=== PATIENT | male | born 1950 | race Caucasian/White ===

== ENCOUNTER 2018-03-28 06:43 | Inpatient (IN) | payer MEDICAID, MEDICARE ==
--- NOTE | 2018-03-28 07:19 | ED Physician Documentation ---
PD HPI HEENT - Stated complaint Stated Complaint: SWOLLEN JAW - Chief complaint Chief Complaint: Heent - History obtained from History obtained from: Patient - History of Present Illness Timing - onset: How many days ago (5) Timing - duration: Days (5) Timing - details: Gradual onset, Still present (Progressively worse.) Location: Other (Right face, jaw) Associated symptoms: Facial swelling Similar symptoms before: Has not had sx before - Additional information Additional information: The patient is a 67-year-old male who presents with right facial swelling. 5 days ago he yawned widely, and felt a pop on the right jaw. For the past 2 days he has had progressively increased swelling on the right side of the face. He is unable to open his jaw more than a small amount. He denies fever, toothache, or difficulty swallowing. He denies history of similar symptoms in the past. Review of Systems Constitutional: denies: Fever Eyes: denies: Irritation Ears: denies: Ear pain Nose: denies: Congestion Throat: denies: Sore throat Cardiac: denies: Chest pain / pressure Respiratory: denies: Dyspnea, Cough GI: denies: Abdominal Pain, Nausea, Vomiting Skin: denies: Rash Musculoskeletal: denies: Neck pain, Extremity swelling Neurologic: denies: Focal weakness, Numbness, Headache PD PAST MEDICAL HISTORY - Past Medical History Past Medical History: Yes Cardiovascular: Congestive heart failure, Hypertension, High cholesterol, Coronary artery disease Respiratory: None Neuro: None Endocrine/Autoimmune: None GI: None : None HEENT: None Psych: None Musculoskeletal: Osteoarthritis Derm: None - Past Surgical History Past Surgical History: Yes Cardiovascular: Coronary stent HEENT: Tonsil/Adenoidectomy - Present Medications Home Medications: Ambulatory Orders Medication Instructions Recorded Confirmed Atorvastatin Calcium 80 mg PO QPM 03/28/18 03/28/18 Carvedilol 6.25 mg PO BID 03/28/18 03/28/18 Furosemide 20 mg PO DAILY 03/28/18 03/28/18 Spironolactone 12.5 mg PO DAILY 03/28/18 03/28/18 - Allergies Allergies/Adverse Reactions: Allergies Allergy/AdvReac Type Severity Reaction Status Date / Time No Known Drug Allergies Allergy Verified 03/28/18 06:53 - Social History Does the pt smoke?: No Smoking Status: Never smoker Does the pt drink ETOH?: Yes Does the pt have substance abuse?: No Substance Use and Type: Marijuana - Immunizations Immunizations are current?: No Immunizations: TDAP >10years/unknown - POLST Patient has POLST: No PD ED PE NORMAL - Vitals Vital signs reviewed: Yes (Borderline hypertension.) - General General: Alert and oriented X 3, Well developed/nourished - HEENT HEENT: Atraumatic, EOMI, Ears normal, Pharynx benign, Other (Marked right facial swelling, in the parotid region.) - Neck Neck: Supple, no meningeal sign, No adenopathy - Cardiac Cardiac: RRR - Respiratory Respiratory: No respiratory distress, Clear bilaterally - Derm Derm: No rash - Neuro Neuro: Alert and oriented X 3, No motor deficit, Normal speech Results - Vitals Vitals: Vital Signs - 24 hr 03/28/18 03/28/18 06:45 10:36 Temperature 36.3 C L 36.9 C Heart Rate 97 90 Respiratory 17 16 Rate Blood Pressure 134/83 H 139/85 H O2 Saturation 98 96 Oxygen O2 Source Room air - Labs Labs: Laboratory Tests 03/28/18 08:40 Sodium 135 Potassium 5.2 H Chloride 101 Carbon Dioxide 24 Anion Gap 10.0 BUN 22 H Creatinine 1.1 Estimated GFR (MDRD) 67 L Glucose 149 H Calcium 9.6 PD MEDICAL DECISION MAKING - ED course Complexity details: reviewed results, re-evaluated patient, considered differential, d/w patient, d/w service delivery management consultant ED course: The patient's presentation is significant for a large dental abscess measuring 3.8 x 3.8 cm in size, involving the right masseter and buccinator muscles. On CT scan it appears to be associated with a decayed third molar. Treatment in the emergency department included administration of clindamycin 900 mg IV, and morphine 5 mg IV. I discussed his condition with Dr. Jeffery Scanlon , maxillofacial surgeon, and he accepts the patient for surgical intervention. He asked that the patient be also treated with Decadron 10 mg every 6 hours and Unasyn 3 gm every 6 hours, and he asked that the hospitalist admit the patient. I discussed his condition with Dr. Durbin, who accepts. The first doses of Decadron and Unasyn were administered in the emergency department. - Sepsis Event Vital Signs: Vital Signs - 24 hr 03/28/18 03/28/18 06:45 10:36 Temperature 36.3 C L 36.9 C Heart Rate 97 90 Respiratory 17 16 Rate Blood Pressure 134/83 H 139/85 H O2 Saturation 98 96 Oxygen O2 Source Room air Departure - Departure Disposition: ED Place in Observation Clinical Impression: Dental abscess Condition: Stable Discharge Date/Time: 03/28/18 11:54
[2018-03-28] MEDS ORDERED: IOPAMIDOL-300 100 ML VIAL IVP ONE (07:32)
[2018-03-28] MEDS ORDERED: IOPAMIDOL-300 100 ML VIAL ONE (07:34)
[2018-03-28] MEDS ORDERED: MORPHINE 10 MG/ML VIAL IVP STA (08:56)
[2018-03-28 08:57] LABS: CALCIUM 9.6 mg/dL (8.5-10.3); CREATININE 1.1 mg/dL (0.6-1.2)
[2018-03-28] MEDS ORDERED: CLINDAMYCIN 900 MG/50 ML 50 ML IV ONE (10:06)
--- NOTE | 2018-03-28 10:10 | CT Report ---
EXAM: CT MAXILLOFACIAL WITH CONTRAST EXAM DATE: 03/28/2018 09:21 AM. CLINICAL HISTORY: Right facial swelling; ?abscess. COMPARISONS: None. TECHNIQUE: Thin-section axial images were acquired of the face after administration of intravenous co ntrast. Post-processing: Coronal and sagittal reformats. Other: None. IV contrast: 100 cc Isovue-300. In accordance with CT protocol optimization, one or more of the following dose reduction techniques w ere utilized for this exam: automated exposure control, adjustment of mA and/or KV based on patient s ize, or use of iterative reconstructive technique. FINDINGS: Irregularly shaped, peripherally enhancing low attenuation collection centered in the right masticato r space (in the right masseter and buccinator muscle) measuring up to 3.8 x 1.7 x 3.8 cm most likely represents odontogenic abscess. There is decayed partially erupted right maxillary third molar with s ignificant lucencies around the tooth. Lateral right mandibular cortical breakthrough adjacent to the root of the tooth (axial image 76 series 3). Significant soft tissue swelling and fat stranding in t he bilateral submandibular and submental region. A similar decayed unerupted or partially erupted left mandibular third molar is demonstrated. [place]uita-radicular lucency around the root of decayed left mandibular molar is also demonstrated extendin g laterally with cortical breakthrough of the adjacent mandible (axial image 77 series 4) without jose e dence for abscess. Changes compatible with cartilaginous nasal septal perforation. Paranasal sinuses and mastoid air ashley ls are unremarkable. Nasopharynx, oropharynx, hypopharynx, larynx appear unremarkable. There are find ings of right vocal cord paresis with medialization of the right vocal cord, enlargement of the ipsil ateral right piriform sinus. Visible intracranial contents appear unremarkable. Intracranial vasculature shows mild atheroscleroti c calcification of the cavernous carotid segment otherwise unremarkable. Orbits and extracranial soft tissue appear unremarkable. Parapharyngeal space, retropharyngeal space appear unremarkable. There i s approximately 40% stenosis of bilateral internal carotid arteries with atherosclerotic calcificatio ns. Alignment of the cervical spine is within normal. No suspicious lytic or sclerotic osseous lesions. IMPRESSION: 1. Large irregular, peripherally enhancing abscess in the right finance accounting internship space (right masseter and buccinator muscle), most likely odontogenic abscess originating from a decayed partially erupted righ t mandibular third molar. No evidence for submandibular abscess or floor of mouth abscess. 2. Similar decayed partially erupted left mandibular third molar. 3. Decayed left mandibular first molar with quita-radicular lucency and periodontal disease. 4. Changes compatible with cartilaginous nasal septal perforation. 5. 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 6. Atherosclerotic calcified and noncalcified plaque of bilateral carotid bifurcation with less than 50% stenosis. RADIA The above findings were discussed with Pranay Alvarenga by Dr. Kleber Chen at 10:04 hrs on 03/28/18. Referring Provider Line: [phone] SITE ID: [id number]
[2018-03-28] MEDS ORDERED: DEXAMETHASONE 10 MG/ML VIAL IVP STA (11:02)
[2018-03-28] MEDS ORDERED: AMPICILLIN/SULBACTAM 3 GM in SODIUM CHLORIDE 0.9% MINIBAG 100 ML IV STA (11:03)
--- NOTE | 2018-03-28 11:43 | HISTORY & PHYSICAL EXAMINATION ---
Chief Complaint - Chief Complaint Chief Complaint: right facial abcess. History of Present Illness - Admitted From Admitted From:: ED - History Obtained From Records Reviewed: yes History obtained from: chart review, patient Exam Limitations: none. - History of Present Illness HPI Comment/Other: Wm Milan is a 67-year old white male with a prominent cardiac history including HTN, hyperlipidemia, coronary stents x4, CHF, nocturia, dental caries , arthritis, tobacco dependence, alcohol dependence and occasional marijuana use. He presented to the ED after about a 5 day history of increased right facial pain, swelling that has grown significantly ever since 2 days ago when he noticed "a pop in my jaw". Today this swelling involved his right lips to the point he can no longer open his mouth. He denies recent fevers, chills, nausea, vomiting, headaches or a new cough. Once in the ED the maxillofacial surgeon was called and believes that due to the extent of this absess, further IV treatment post-op will be necessary. He will undergo a right facial I & D later today. History - Past Medical History Cardiovascular: reports: Congestive heart failure, Hypertension, High cholesterol, Coronary artery disease Respiratory: reports: None Neuro: reports: None Endocrine/Autoimmune: reports: None GI: reports: Chronic diarrhea, Chronic constipation : reports: Nocturia HEENT: reports: None Psych: reports: None Musculoskeletal: reports: Osteoarthritis Derm: reports: None MRSA Hx?: No - Past Surgical History Cardiovascular: reports: Coronary stent, Cardiac catheterization HEENT: reports: Tonsil/Adenoidectomy - Family & Social History Family History: Mother: , Diabetes, Type 2, Father: , CAD, Sister: Alive and Well, Diabetes, Type 2 Living arrangement: At home Living Situation: Alone - Substance History Use: Uses substance without health or social issues: Tobacco, Alcohol, Cannabis Abuse: Recurrent use of substance despite neg consequences: Alcohol, Cannabis Dependence: Experiences withdrawal or developed tolerances: Tobacco, Alcohol, Cannabis Tobacco Details: Cigarettes - POLST Patient has POLST: No POLST Status: Full Code Meds/Allgy - Home Medications Home Medications: Ambulatory Orders Medication Instructions Recorded Confirmed Atorvastatin Calcium 80 mg PO QPM 03/28/18 03/28/18 Carvedilol 6.25 mg PO BID 03/28/18 03/28/18 Furosemide 20 mg PO DAILY 03/28/18 03/28/18 Spironolactone 12.5 mg PO DAILY 03/28/18 03/28/18 - Allergies Allergies/Adverse Reactions: Allergies Allergy/AdvReac Type Severity Reaction Status Date / Time No Known Drug Allergies Allergy Verified 03/28/18 06:53 Review of Systems - Constitutional Constitutional: reports: Fatigue, Weight loss (related to lack of food from soreness in mouth.) - Eyes Eyes: reports: Corrective lenses - Ears, Nose & Throat Ears, Nose & Throat: reports: Nasal congestion, Postnasal drainage, Dental decay - Respiratory Respiratory: reports: Cough - Gastrointestinal Gastrointestinal: reports: Constipation, Diarrhea, Change in bowel habits, Reflux/heartburn, Poor appetite - Genitourinary Genitourinary: reports: Nocturia - Neurological Neurological: reports: Focal weakness - All Other Systems All Other Systems: reports: Reviewed and negative Exam - Vital Signs Reviewed Vital Signs: Yes Vital Signs: Temp Pulse Resp BP Pulse Ox 36.6 C 99 18 139/81 H 99 03/28/18 16:31 03/28/18 16:31 03/28/18 16:31 03/28/18 16:31 03/28/18 16:31 - Physical Exam General Appearance: positive: No acute distress, Alert Eyes Bilateral: positive: Normal inspection, PERRL, Other (mild right eye inflammation, patient denies changes in vision. No drainaged noted.) ENT: positive: ENT inspection nml, Pharyngeal erythema, Oral lesions, Dry mucous membranes, Other (patient unable to open his mouth for a complete exam, will defer this to ENT.) Neck: positive: No JVD, Trachea midline, Lymphadenopathy (R), Stiff neck Respiratory: positive: Chest non-tender, No respiratory distress, Breath sounds nml Cardiovascular: positive: Regular rate & rhythm, Irregularly irregular, Tachycardia, Systolic murmur Peripheral Pulses: positive: 2+ Abdomen: positive: Non-tender, Nml bowel sounds, Other (rounded, soft) Back: positive: Nml inspection Skin: positive: No rash, Warm, Dry, Pallor Extremities: positive: Non-tender, Full ROM, Nml appearance, No pedal edema Neurologic/Psychiatric: positive: Oriented x3, CN's nml (2-12), Motor nml, Sensation nml, Depressed mood/affect Reflexes: Bicep (R): 3+, Bicep (L): 3+ Conclusion/Plan - Problem List (1) CAD (coronary artery disease) Conclusion/Plan: The patient admits to "4 coronary stents" in the past and believes that this was late 2015. He states that he has had "a mini heart attack with chest pain, which led to these stents". He was discontinued off both Plavix and Warfarin. He continues on Coreg, spironolactone and furosemide appropriately at home. He now has an elevated BNP that was check pre-op, so I will order an echocardiogram to be completed in the AM in order to make favorable adjustments to his medications, especially since he does not have a current PCP. Plan: Continue Coreg, telemetry monitoring, and add lasix first IV, then transition to PO by the time of discharge. (2) Dental abscess Conclusion/Plan: As per imaging that was completed in the ED, this right facial abscess was caused by a tooth in the upper right jaw. Plans for patient to undergo a possible tooth extraction, I & D with Dr. Jeffery Scanlon, maxillofacial surgeon today. There is a horrible stench noticed in the room and this is likely the infection from his right facial abscess. Upon exam the abscess is tender, very firm, and encompasses much of his entire check, into his right eye socket, and right side of his mouth/lips. Plan: Continue plan of care. (3) Pre-op evaluation Conclusion/Plan: Based on the revised cardiac risk index for pre-operative risk, this patient is at a 6.6% risk of a major cardiac event. His physical exam is benign. Plan: Proceed with surgery today for this acute infection and await labs. - Lab Results Lab results reviewed: Yes Miguel Bones: 03/28/18 13:20 03/28/18 13:20 Core Measures - Anticipated LOS I expect patient to be DC'd or transferred within 96 hours.: Yes - DVT/VTE - Prophylaxis VTE/DVT Device ordered at admit?: Yes VTE/DVT Prophylaxis med ordered at admit?: No Not Ordered - Medical Reason: Contraindicated - Stroke - Rehab Assessment Rehab services assessment to be ordered?: No Not Ordered - Medical Reason: Contraindicated - AMI - Statin at Admit Aspirin Prescribed on Admit: No Not Ordered - Medical Reason: Contraindicated
[2018-03-28] MEDS: SODIUM CHLORIDE FLUSH 0.9% 10 ML SYRINGE IVP PRN (12:24)
[2018-03-28] MEDS ORDERED: MORPHINE 2 MG/ML SYRINGE IVP PRN (12:28)
[2018-03-28] MEDS ORDERED: NS W/20 MEQ KCL 1,000 ML IV SCH (13:00)
[2018-03-28] MEDS ORDERED: SODIUM CHLORIDE 0.9% 1,000 ML IV ONE (13:05)
[2018-03-28] MEDS ORDERED: LIDOCAINE TOPICAL 4% 50 ML BOTTLE ONE (13:09)
[2018-03-28] MEDS ORDERED: OXYMETAZOLINE NASAL SPRAY NAS ONE (13:09)
[2018-03-28 13:32] LABS: BASOPHILS % (AUTO) 0.3 %; EOSINOPHILS % (AUTO) 0.1 %; HGB - HEMOGLOBIN 13.4 g/dL (14.0-18.0); INR 1.4 (0.8-1.2); LYMPHOCYTES # (AUTO) 0.3 10^3/uL (1.5-3.5); LYMPHOCYTES % (AUTO) 2.4 %; MEAN CORPUSCULAR HEMOGLOBIN 31.4 pg (27.0-31.0); MEAN CORPUSCULAR VOLUME 95.1 fL (80.0-94.0); MEAN PLATELET VOLUME 7.8 fL (7.4-11.4); MONOCYTES # (AUTO) 0.8 10^3/uL (0.0-1.0); MONOCYTES % (AUTO) 5.7 %; NEUTROPHILS # (AUTO) 12.4 10^3/uL (1.5-6.6); NEUTROPHILS % (AUTO) 91.5 %; PLT - PLATELET COUNT 220 10^3/uL (130-450); PT - PROTHROMBIN TIME 15.6 secs (9.9-12.6); RED BLOOD COUNT 4.27 10^6/uL (4.70-6.10); RED CELL DISTRIBUTION WIDTH 14.9 % (12.0-15.0); WHITE BLOOD COUNT 13.5 x10^3/uL (4.8-10.8)
[2018-03-28] MEDS ORDERED: LACTATED RINGERS 1,000 ML IV ONE (13:48)
--- NOTE | 2018-03-28 13:57 | PROVIDER PROGRESS NOTE ---
Subjective - Prog Note Date Prog Note Date: 03/28/18 Prog Note Time: 13:50 - Subjective Subjective: Brief Consult note (dictated note, zigzag elastic attacher pending) Objective - Vital Signs/Intake & Output Vital Signs: Vital Signs x48h Temp Pulse Resp BP Pulse Ox 03/28/18 11:52 36.5 C 103 H 18 137/89 H 99 Intake & Output: Intake & Output 03/25/18 03/26/18 03/27/18 03/28/18 23:59 23:59 23:59 23:59 Intake Total 50 Balance 50 - Lab Results Fish Bones: 03/28/18 13:20 03/28/18 08:40 Other Labs: Lab Results x24hrs 03/28/18 03/28/18 Range/Units 13:20 13:20 WBC 13.5 H (4.8-10.8) x10^3/uL RBC 4.27 L (4.70-6.10) 10^6/uL Hgb 13.4 L (14.0-18.0) g/dL Hct 40.6 L (42.0-52.0) % MCV 95.1 H (80.0-94.0) fL MCH 31.4 H (27.0-31.0) pg MCHC 33.0 (32.0-36.0) g/dL RDW 14.9 (12.0-15.0) % Plt Count 220 (130-450) 10^3/uL MPV 7.8 (7.4-11.4) fL Neut # (Auto) 12.4 H (1.5-6.6) 10^3/uL Lymph # (Auto) 0.3 L (1.5-3.5) 10^3/uL [place] # (Auto) 0.8 (0.0-1.0) 10^3/uL Eos # (Auto) 0.0 (0.0-0.7) 10^3/uL Baso # (Auto) 0.0 (0.0-0.1) 10^3/uL Absolute Nucleated RBC 0.01 x10^3/uL Nucleated RBC % 0.0 /100WBC PT 15.6 H (9.9-12.6) secs INR 1.4 H (0.8-1.2) APTT 28.4 (24.9-33.3) secs - Other Results/Comments Other Results/Comments: Cellulitis from the R zygomatic arch to the left inferior border of the mandible , extending inferiorly to the thyroid cartilage. Severe trismus, around 1cm, mechanically limited, not limited by pain. Uvula midline, no lateral pharyngeal swelling. CT: large abscess on the lateral aspect of the mandible. Airway midline, mild effacement and mass effect. No cellulitis medial to the mandible. CT consistent with odontogenic abscess - cortical perforation at apex of decayed , necrotic, impacted tooth #32. 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 Plan: I&D of the R neck and face w/ removal of tooth #32 - unasyn 3g q6h - decadron 10mg q6h <> hold if suspect DM II - Puree diet when awake - potassium per primary, appreciate assistance - gentle IV hydration - drains: keep clean, change dressing BID and prn. Clean skin with moist gauze. - shower daily - chlorhexidine mouthrinse BID - elevate HOB - ambulate TID - SCDs - weight daily - jaw stretching exercises once awake - will see tomorrow am. anticipate two midnight stay, will monitor for improvement of swelling and improvement (not resolution) of trismus. - home on augmentin x 10 days
[2018-03-28 14:22] LABS: CALCIUM 8.7 mg/dL (8.5-10.3); CRP - C-REACTIVE PROTEIN 34.2 mg/dL (0-1.0)
[2018-03-28] MEDS ORDERED: LIDOCAINE 2%-EPI 1:100000 20 ML MDV SUBQ ONE ×2 (14:23)
[2018-03-28] MEDS ORDERED: LIDOCAINE MPF 2%-EPI 1:200000 20 ML VIAL ONE (14:29)
--- NOTE | 2018-03-28 14:50 | XRAY Report ---
CHEST ONE VIEW: 03/28/2018 HISTORY: Preoperative, cough. COMPARISON: 08/11/[address] FINDINGS: The lungs are clear. No pleural effusion or pneumothorax. Heart size appears enlarged, some of which is related to the AP portable technique. IMPRESSION: CLEAR LUNGS. TD: 03/28/2018 13:16
[2018-03-28] MEDS ORDERED: NEOSTIGMINE 1 MG/1 ML 10 ML MDV IVP ONE (15:14)
[2018-03-28] MEDS ORDERED: ROCURONIUM 50 MG/5 ML VIAL IVP ONE (15:14)
[2018-03-28] MEDS ORDERED: ONDANSETRON 4 MG/2 ML VIAL IVP ONE (15:14)
[2018-03-28] MEDS ORDERED: ePHEDrine 50 MG/ML AMP IVP ONE (15:14)
[2018-03-28] MEDS ORDERED: LIDOCAINE TOPICAL 4% 160 MG/4 ML KIT TOP ONE (15:14)
[2018-03-28] MEDS ORDERED: GLYCOPYRROLATE 1 MG/5 ML VIAL IVP ONE (15:14)
[2018-03-28] MEDS ORDERED: MIDAZOLAM 2 MG/2 ML VIAL IVP ONE (15:14)
[2018-03-28] MEDS ORDERED: fentaNYL 100 MCG/2 ML VIAL IVP ONE (15:14)
[2018-03-28] MEDS ORDERED: PROPOFOL 200 MG/20 ML VIAL IVP ONE (15:14)
[2018-03-28] MEDS ORDERED: ONDANSETRON 4 MG/2 ML VIAL ONE (15:38)
[2018-03-28] MEDS: DEXTROSE 5%-0.45% NACL 1,000 ML IV SCH ×2 (15:51→16:23)
[2018-03-28] MEDS ORDERED: SODIUM CHLORIDE 0.9% 500 ML IV ONE (15:56)
[2018-03-28] MEDS: SODIUM CHLORIDE FLUSH 0.9% 10 ML SYRINGE IVP SCH (16:23)
--- NOTE | 2018-03-28 17:01 | CONSULTATION NOTE ---
DATE OF SERVICE: Physician: Jeffery Scanlon DDS REFERRING PROVIDER: Dr. Pranay Alvarenga. LOCATION OF CONSULTATION: Medical/surgical floor. CHIEF COMPLAINT: Right facial swelling and pain. HISTORY OF PRESENT ILLNESS: This is a 67-year-old male who came to the emergency room this morning at 7 a.m. with right facial swelling. He reports that on Saturday of this week, he began to have pain on his right face after he yawned. He did not think much of it and then on Saturday, he began having right facial swelling that gradually worsened until this morning when it was severely worse. Before then, he had sought care briefly, but when he had to wait, he was not successful in seeing any providers for this problem. Today in the emergency room, he was found to have severe right facial swelling and a CT max face with contrast was taken. It demonstrated a 4 cm abscess on the lateral aspect of the right mandibular body and ramus deep to the masseter muscle associated with a necrotic impacted third molar. OMFS was consulted for evaluation and management of this finding. The patient denies any fevers, chills or vomiting. He does endorse some mild nausea this morning. He denies any chest pain, shortness of breath, dyspnea, dysphagia, globus. He does endorse a cough, which cough has been chronic. ROS: a 14 point review of systems was completed and found to be negative except as noted above in HPI. Medical problems: CHF CAD HTN HLD Tobacco use MEDICATIONS: 1. Carvedilol. 2. Atorvastatin. 3. Spironolactone. 4. Furosemide. PAST SURGICAL HISTORY: Cardiac stent placement x4 with the last one in 2014. SOCIAL HISTORY: Smokes 1 pack cigarette per week and per the emergency room report, he does have recreational marijuana use. ALLERGIES: NO KNOWN DRUG ALLERGIES. FAMILY HISTORY: Mother diabetes mellitus, sister diabetes mellitus. PHYSICAL EXAMINATION: VITAL SIGNS: Heart rate 105, blood pressure 124/64, respiratory rate 9. GENERAL: Alert and oriented, in no acute distress. HEENT: Head is normocephalic, atraumatic. Eyes: PERRLA, EOMI. Wears glasses. Ears: Normal hearing. No drainage. Bilateral tympanic membranes within normal limits. No hearing changes. No mastoid swelling. Nose: Patent bilaterally. Mouth maximum incisal opening about 1 cm. Examination of the posterior teeth is impossible because of his poor opening and his facial swelling. He does have severe right facial swelling that is indurated and woody. It extends from about the right zygoma down over the right mandible and to the right inferior border of the mandible. At the inferior border of the mandible swelling and tenderness continues, but it is no longer woody hard. Instead it is more consistent with a softer cellulitis. It does cross the midline and spreads over the left submandibular area as well. Inferiorly, it spreads as far as the thyroid cartilage and does not spread any further. There is only mild erythema associated with the swelling in his neck and there is no pain or swelling on his chest. NECK: As described above there is a swelling, otherwise his airway is midline and there are no palpable masses. CHEST: Symmetric rise. Nonlabored respirations. Clear to auscultation bilaterally. HEART: Regular rate and rhythm. No murmur. ABDOMEN: Soft, nontender, nondistended. Normoactive bowel sounds. EXTREMITIES: Good strength. Full range of motion. INTEGUMENTARY: Clean, dry and intact. NEUROLOGIC: Cranial nerves 2-12 intact. PSYCHIATRIC: Appropriate mood and affect. IMAGING: There is a CT max face that I was able to review. It does demonstrate a large 4 cm abscess associated with the right body and ramus of the mandible. The abscess is all located laterally to the mandible and it is all deep to the masseter. Also noted is an impacted wisdom tooth, tooth #32, which has just enough oral communication to become very decayed and necrotic with a perforation through the lateral plate of the mandible where the apex of the tooth lies consistent with odontogenic source of this infection. There is also evidence of a cellulitis of the bilateral submandibular spaces, fat stranding and the fat stranding does not extend down to the clavicles. LABORATORY DATA: The CBC demonstrates a white count of 13.5, a platelet count of 220 and a hematocrit of 13.4. A DMP demonstrates a potassium of 5.2 and a blood glucose of 149. It should be noted that this was measured this morning at 8:40 and his dose of Decadron was not until around noon. ASSESSMENT AND PLAN: 1. 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 2. History of heart failure. 3. Dehydration. 4. Tobacco use. 5. Hyperkalemia. Potassium 5.2, probably secondary to spironolactone use. 6. Hyperglycemia without a history of diabetes, but he does have a significant family history. PLAN: We anticipate incision and drainage of the right submandibular masseteric and sublingual spaces with removal of tooth #32 and any other teeth as necessary. The risks, benefits and alternatives of this plan were discussed with the patient including pain, swelling, bleeding, infection, recurrence of the infection, need for further surgeries, permanent numbness of the lip, chin or tongue, permanent damage to adjacent teeth, permanent paralysis scarring, poor cosmesis and jaw fracture. Adequate time was given to answer all questions and informed consent was obtained. This patient will need to be admitted to the hospital for IV antibiotics and for airway monitoring while his trismus is 1 cm. Once his opening is improved and he is showing evidence of resolution of the disease, he can be discharged home. Anticipate 2 nights stay in-house. cc: Pranay Alvarenga M.D. TD: 03/28/2018 14:03 [id number]
[2018-03-28] MEDS ORDERED: cefTRIAXone 1 GM VIAL IVP SCH (17:20)
--- NOTE | 2018-03-28 17:21 | OPERATIVE REPORT ---
DATE OF SERVICE: 03/28/2018 Physician: Jeffery Scanlon DDS POSTOPERATIVE DIAGNOSIS: 1. Right masseteric space abscess and bilateral submandibular space cellulitis secondary to necrotic tooth #32. 2. Decayed impacted tooth #32. PROCEDURE: 1. 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 2. Removal of full bony impacted tooth #32. SURGEON: Jeffery Scanlon DDS MAGNETIC HEALER: Maria Alejandra Ma. ANESTHESIA: General anesthesia via oral endotracheal intubation. SPECIMENS: A sample of the purulence was sent to micro for Gram stain, anaerobic and aerobic culture and sensitivity. COMPLICATIONS: None. ESTIMATED BLOOD LOSS: 10 mL. DRAINS, PACKS, CATHETERS: A 1/4 inch Welches was placed in the through the right neck up into the right masseteric space lateral to the mandible. INDICATIONS FOR PROCEDURE: This is a 67-year-old male with a week long history of swelling of the right face. 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 It was decided that removal of this tooth and incision and drainage of the abscess was indicated. The risks, benefits and alternatives of the spine were discussed with the patient and informed consent was obtained. DESCRIPTION OF PROCEDURE: The patient was brought to the main operating room and placed in the supine position on the operating table. General anesthesia was induced by the anesthesia team and the airway was secured with an oral endotracheal tube taped to the left side of the mouth. It should be noted that once the patient was sedated his severe trismus did not improve significantly. He still had severe trismus and it was difficult to intubate him. It was performed with a GlideScope. All pressure points were padded and checked. The eyes were protected with Tegaderms. The patient was prepped and draped in the standard sterile fashion for an incision and drainage of the neck and removal of the tooth. A formal timeout was executed, local anesthesia was achieved with 2 percent lidocaine with 1:100,000 epinephrine x4 mL. A throat pack was placed. Attention was directed to the right neck. A 2 cm incision was performed at the inferior aspect of the swelling about approximately 2 cm inferior to the inferior border of the mandible and following the skin tension lines. Blunt dissection toward the mandible was then carried out easily encountering the mandible and entering the abscess cavity, a significant amount of extremely pungent purulence was encountered and milked out. The Blunt curved Kristina was used to explore all aspects of the cavity and large chunks of purulence and other material were being expressed from the site. It was decided to widen the incision just slightly enough to get a finger up into the abscess cavity and continue the blunt dissection. Probably the majority of the lateral ramus and body of the mandible on the right side were exposed as part of this dissection and really no dissection had to be performed. It appeared to have already been performed by the abscess, but now that it was opened significant amount more of debris and purulence was expressed from the wound. It was irrigated with copious amounts of sterile saline, about 800 mL and then attention was directed intraorally. A hockey stick incision over the right mandibular 3rd molar area was made with a 45-degree distal buccal release and a buccal full-thickness flap was elevated. The decayed tooth was found inside of a small perforation in the bone. A handpiece was used to remove bone around the tooth making a buccal and distal trough taking care not to perforate the lingual plate. The tooth was sectioned and the tooth was removed in entirety. The site was curetted and irrigated copiously and then closed loosely with 3-0 gut suture to prevent an oral cutaneous communication, which would allow for food impaction into the abscess cavity. The mouth was rinsed free of debris. The throat pack was removed. The patient's face was cleansed. The eyes were rinsed with BSS. He was dressed with gauze and burn netting around the right neck and care of the patient was returned to the anesthesia team for uneventful emergence from anesthesia and extubation. The patient was then transferred to the PACU in stable condition. TD: 03/28/2018 15:57
[2018-03-28] MEDS: cefTRIAXone 1 GM in SODIUM CHLORIDE 0.9% MINIBAG 100 ML IV SCH (18:01)
[2018-03-28] MEDS: CARVEDILOL 3.125 MG TABLET PO SCH (18:06)
[2018-03-28 18:45] LABS: HEMOGLOBIN A1C 0.7 g/dL; HEMOGLOBIN A1C % 5.9 % (4.6-6.2)
[2018-03-28] MEDS: SACCHAROMYCES BOULARDII 250 MG CAPSULE PO SCH (18:52)
[2018-03-28] MEDS: CHLORHEXIDINE GLUCONATE 15 ML UDC PO SCH ×2 (18:52→21:37)
[2018-03-28] MEDS: metroNIDAZOLE 500 MG/100 ML 500 MG/100 ML BAG IV SCH (18:52)
[2018-03-28] MEDS ORDERED: CARVEDILOL 3.125 MG TABLET PO SCH (21:00)
[2018-03-29] MEDS: SODIUM CHLORIDE FLUSH 0.9% 10 ML SYRINGE IVP SCH ×3 (02:40→18:24)
[2018-03-29] MEDS: metroNIDAZOLE 500 MG/100 ML 500 MG/100 ML BAG IV SCH ×3 (02:41→19:20)
[2018-03-29 06:16] LABS: BASOPHILS % (AUTO) 0.1 %; LYMPHOCYTES # (AUTO) 0.6 10^3/uL (1.5-3.5); LYMPHOCYTES % (AUTO) 5.3 %; MEAN CORPUSCULAR HEMOGLOBIN 31.5 pg (27.0-31.0); MEAN CORPUSCULAR HGB CONC 33.2 g/dL (32.0-36.0); MEAN CORPUSCULAR VOLUME 94.8 fL (80.0-94.0); MEAN PLATELET VOLUME 7.4 fL (7.4-11.4); MONOCYTES % (AUTO) 9.5 %; NEUTROPHILS # (AUTO) 9.1 10^3/uL (1.5-6.6); NEUTROPHILS % (AUTO) 85.1 %; PLT - PLATELET COUNT 192 10^3/uL (130-450); RED BLOOD COUNT 3.82 10^6/uL (4.70-6.10); RED CELL DISTRIBUTION WIDTH 15.2 % (12.0-15.0); WHITE BLOOD COUNT 10.6 x10^3/uL (4.8-10.8)
[2018-03-29 06:35] LABS: ALBUMIN 2.5 g/dL (3.2-5.5); ALBUMIN/GLOBULIN RATIO 0.6 (1.0-2.2); BILIRUBIN,TOTAL 0.7 mg/dL (0.2-1.0); CALCIUM 8.5 mg/dL (8.5-10.3); TOTAL PROTEIN 6.4 g/dL (6.7-8.2)
[2018-03-29] MEDS: DEXTROSE 5%-0.45% NACL 1,000 ML IV SCH (06:47)
[2018-03-29] MEDS: ACETAMINOPHEN 325 MG TABLET PO PRN ×2 (06:51→16:58)
--- NOTE | 2018-03-29 06:54 | PROVIDER PROGRESS NOTE ---
Subjective - Prog Note Date Prog Note Date: 03/29/18 Prog Note Time: 06:51 - Subjective Pt reports feeling: Improved (No events overnight Denies f/c, n/v) Objective - Vital Signs/Intake & Output Vital Signs: Vital Signs x48h Temp Pulse Resp BP Pulse Ox 03/29/18 05:55 36.6 C 92 16 113/70 97 03/29/18 00:05 36.8 C 103 H 16 119/73 96 Intake & Output: Intake & Output 03/26/18 03/27/18 03/28/18 03/29/18 23:59 23:59 23:59 23:59 Intake Total 2300 150 Balance 2300 150 - Objective General Appearance: positive: No acute distress, Alert Eyes Bilateral: positive: PERRL, EOMI ENT: positive: Other (IBRAHIMA improved to 25-30 mm when straining to open. No V3 parasthesia. Swelling softer, slightly less. Drain intact, moderate serosanguinous drainage. Intraoral wound intact, sutures intact. NO lateral pharyngeal swelling, uvula midline.) Respiratory: positive: No respiratory distress, Other (active cough) Cardiovascular: positive: Regular rate & rhythm - Lab Results Fish Bones: 03/29/18 06:04 03/29/18 06:04 Other Labs: Lab Results x24hrs 03/29/18 03/29/18 03/29/18 Range/Units 06:04 06:04 06:04 WBC 10.6 (4.8-10.8) x10^3/uL RBC 3.82 L (4.70-6.10) 10^6/uL Hgb 12.0 L (14.0-18.0) g/dL Hct 36.2 L (42.0-52.0) % MCV 94.8 H (80.0-94.0) fL MCH 31.5 H (27.0-31.0) pg MCHC 33.2 (32.0-36.0) g/dL RDW 15.2 H (12.0-15.0) % Plt Count 192 (130-450) 10^3/uL MPV 7.4 (7.4-11.4) fL Neut # (Auto) 9.1 H (1.5-6.6) 10^3/uL Lymph # (Auto) 0.6 L (1.5-3.5) 10^3/uL Grimes # (Auto) 1.0 (0.0-1.0) 10^3/uL Eos # (Auto) 0.0 (0.0-0.7) 10^3/uL Baso # (Auto) 0.0 (0.0-0.1) 10^3/uL Absolute Nucleated RBC 0.00 x10^3/uL Nucleated RBC % 0.0 /100WBC ESR (0-20) mm/Hr PT (9.9-12.6) secs INR (0.8-1.2) APTT (24.9-33.3) secs Sodium 132 L (135-145) mmol/L Potassium 4.8 (3.5-5.0) mmol/L Chloride 102 (101-111) mmol/L Carbon Dioxide 22 (21-32) mmol/L Anion Gap 8.0 (6-13) BUN 17 (6-20) mg/dL Creatinine 1.0 (0.6-1.2) mg/dL Estimated GFR (MDRD) 75 L (>89) Glucose 207 H (70-100) mg/dL POC Whole Bld Glucose (70 - 100) mg/dL Calcium 8.5 (8.5-10.3) mg/dL Iron 9 L (45-182) ug/dL TIBC 225 L (250-450) ug/dL % Saturation 4 L (20-50) % Transferrin 161 L (180-329) mg/dL Total Bilirubin 0.7 (0.2-1.0) mg/dL GGT 21 (8-55) IU/L AST 22 (10-42) IU/L ALT 19 (10-60) IU/L Alkaline Phosphatase 61 (42-121) IU/L C-Reactive Protein (0-1.0) mg/dL B-Natriuretic Peptide 1335 H (5-100) pg/mL Total Protein 6.4 L (6.7-8.2) g/dL Albumin 2.5 L (3.2-5.5) g/dL Globulin 3.9 (2.1-4.2) g/dL Albumin/Globulin Ratio 0.6 L (1.0-2.2) 03/28/18 03/28/18 03/28/18 Range/Units 17:58 13:21 13:20 WBC (4.8-10.8) x10^3/uL RBC (4.70-6.10) 10^6/uL Hgb (14.0-18.0) g/dL Hct (42.0-52.0) % MCV (80.0-94.0) fL MCH (27.0-31.0) pg MCHC (32.0-36.0) g/dL RDW (12.0-15.0) % Plt Count (130-450) 10^3/uL MPV (7.4-11.4) fL Neut # (Auto) (1.5-6.6) 10^3/uL Lymph # (Auto) (1.5-3.5) 10^3/uL Grimes # (Auto) (0.0-1.0) 10^3/uL Eos # (Auto) (0.0-0.7) 10^3/uL Baso # (Auto) (0.0-0.1) 10^3/uL Absolute Nucleated RBC x10^3/uL Nucleated RBC % /100WBC ESR 57 H (0-20) mm/Hr PT (9.9-12.6) secs INR (0.8-1.2) APTT (24.9-33.3) secs Sodium (135-145) mmol/L Potassium (3.5-5.0) mmol/L Chloride (101-111) mmol/L Carbon Dioxide (21-32) mmol/L Anion Gap (6-13) BUN (6-20) mg/dL Creatinine (0.6-1.2) mg/dL Estimated GFR (MDRD) (>89) Glucose (70-100) mg/dL POC Whole Bld Glucose 163 H (70 - 100) mg/dL Calcium (8.5-10.3) mg/dL Iron (45-182) ug/dL TIBC (250-450) ug/dL % Saturation (20-50) % Transferrin (180-329) mg/dL Total Bilirubin (0.2-1.0) mg/dL GGT (8-55) IU/L AST (10-42) IU/L ALT (10-60) IU/L Alkaline Phosphatase (42-121) IU/L C-Reactive Protein (0-1.0) mg/dL B-Natriuretic Peptide 992 H (5-100) pg/mL Total Protein (6.7-8.2) g/dL Albumin (3.2-5.5) g/dL Globulin (2.1-4.2) g/dL Albumin/Globulin Ratio (1.0-2.2) 03/28/18 03/28/18 03/28/18 Range/Units 13:20 13:20 13:20 WBC 13.5 H (4.8-10.8) x10^3/uL RBC 4.27 L (4.70-6.10) 10^6/uL Hgb 13.4 L (14.0-18.0) g/dL Hct 40.6 L (42.0-52.0) % MCV 95.1 H (80.0-94.0) fL MCH 31.4 H (27.0-31.0) pg MCHC 33.0 (32.0-36.0) g/dL RDW 14.9 (12.0-15.0) % Plt Count 220 (130-450) 10^3/uL MPV 7.8 (7.4-11.4) fL Neut # (Auto) 12.4 H (1.5-6.6) 10^3/uL Lymph # (Auto) 0.3 L (1.5-3.5) 10^3/uL Grimes # (Auto) 0.8 (0.0-1.0) 10^3/uL Eos # (Auto) 0.0 (0.0-0.7) 10^3/uL Baso # (Auto) 0.0 (0.0-0.1) 10^3/uL Absolute Nucleated RBC 0.01 x10^3/uL Nucleated RBC % 0.0 /100WBC ESR (0-20) mm/Hr PT 15.6 H (9.9-12.6) secs INR 1.4 H (0.8-1.2) APTT 28.4 (24.9-33.3) secs Sodium 134 L (135-145) mmol/L Potassium 4.7 (3.5-5.0) mmol/L Chloride 104 (101-111) mmol/L Carbon Dioxide 20 L (21-32) mmol/L Anion Gap 10.0 (6-13) BUN 20 (6-20) mg/dL Creatinine 1.0 (0.6-1.2) mg/dL Estimated GFR (MDRD) 75 L (>89) Glucose 126 H (70-100) mg/dL POC Whole Bld Glucose (70 - 100) mg/dL Calcium 8.7 (8.5-10.3) mg/dL Iron (45-182) ug/dL TIBC (250-450) ug/dL % Saturation (20-50) % Transferrin (180-329) mg/dL Total Bilirubin (0.2-1.0) mg/dL GGT (8-55) IU/L AST (10-42) IU/L ALT (10-60) IU/L Alkaline Phosphatase (42-121) IU/L C-Reactive Protein 34.2 H (0-1.0) mg/dL B-Natriuretic Peptide (5-100) pg/mL Total Protein (6.7-8.2) g/dL Albumin (3.2-5.5) g/dL Globulin (2.1-4.2) g/dL Albumin/Globulin Ratio (1.0-2.2) Assessment/Plan - Problem List (1) Dental abscess Impression: A: 67 yo M POD #1 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 - anticipate d/c tomorrow am pending continued clinical improvement of abscess and clearance for d/c by IM - encouraged good PO intake - gave jaw stretching exercise instructions - continue IV abx. Noted change from Unasyn to Ancef/Flagyl. - appreciate IM assistance, please call w/ questions: [phone] Jeffery Scanlon DDS
[2018-03-29] MEDS ORDERED: FUROSEMIDE 40 MG/4 ML VIAL IVP SCH (08:00)
[2018-03-29] MEDS: SACCHAROMYCES BOULARDII 250 MG CAPSULE PO SCH ×2 (08:17→16:58)
[2018-03-29] MEDS: FUROSEMIDE 40 MG/4 ML VIAL IVP SCH ×2 (08:17→08:32)
[2018-03-29] MEDS: CARVEDILOL 3.125 MG TABLET PO SCH (08:17)
[2018-03-29] MEDS: POLYETHYLENE GLYCOL 3350 17 GM PACKET PO SCH (08:17)
[2018-03-29] MEDS: SPIRONOLACTONE 25 MG TABLET PO SCH (08:17)
[2018-03-29] MEDS: CHLORHEXIDINE GLUCONATE 15 ML UDC PO SCH ×2 (08:18→20:05)
[2018-03-29] MEDS ORDERED: CARVEDILOL 12.5 MG TABLET PO SCH (12:00)
[2018-03-29] MEDS ORDERED: ISOSORBIDE MONONITRATE ER 30 MG TABLET PO SCH (12:00)
--- NOTE | 2018-03-29 14:19 | PROVIDER PROGRESS NOTE ---
Subjective - Prog Note Date Prog Note Date: 03/29/18 Prog Note Time: 14:18 - Subjective Pt reports feeling: Improved Subjective: Quan complains about his "mashed up food" and very much dislikes this texture. He denies SOB, chest pain, nausea, vomiting or a new cough. He admits to being compliant with his jaw exercises as per surgery. Current Medications - Current Medications Current Medications: Active Medications Acetaminophen (Tylenol) 650 mg PO Q4HR PRN PRN Reason: Pain or Fever > 38C (100.4F) Last Admin: 03/29/18 06:51 Dose: 650 mg Atorvastatin Calcium (Lipitor) 80 mg PO QPM [facility] Carvedilol (Coreg) 12.5 mg PO BID [facility] Chlorhexidine Gluconate (Peridex) 15 ml PO BID [facility] Last Admin: 03/29/18 08:18 Dose: 15 ml Furosemide (Lasix Inj 40 Mg Vial) 40 mg IVP DAILY [facility] Last Admin: 03/29/18 08:32 Dose: Not Given Furosemide (Lasix) 20 mg PO DAILY [facility] Metronidazole (Flagyl 500 Mg/100 Ml) 500 mg in 100 mls @ 100 mls/hr IV Q8H [facility] Last Infusion: 03/29/18 13:11 Dose: Infused Ceftriaxone Sodium 1 gm/ (Sodium Chloride) 100 mls @ 200 mls/hr IV Q24H [facility] Last Infusion: 03/28/18 18:30 Dose: Infused Isosorbide Mononitrate (Imdur) 30 mg PO DAILY [facility] Last Admin: 03/29/18 12:50 Dose: 30 mg Morphine Sulfate (Morphine) 2 mg IVP Q2H PRN PRN Reason: PAIN Last Admin: 03/28/18 13:07 Dose: 2 mg Polyethylene Glycol (Miralax) 17 gm PO DAILY [facility] Last Admin: 03/29/18 08:17 Dose: 17 gm Saccharomyces Boulardii (Florastor) 500 mg PO BIDWM [facility] Last Admin: 03/29/18 08:17 Dose: 500 mg Sodium Chloride (Normal Saline Flush 0.9%) 10 ml IVP PRN PRN PRN Reason: NEEDED PER PROVIDER ORDERS Last Admin: 03/28/18 12:24 Dose: 10 ml Sodium Chloride (Normal Saline Flush 0.9%) 10 ml IVP 0100,0900,1700 [facility] Last Admin: 03/29/18 08:18 Dose: 10 ml Spironolactone (Aldactone) 12.5 mg PO DAILY [facility] Last Admin: 03/29/18 08:17 Dose: 12.5 mg Atorvastatin Calcium 80 mg PO QPM 03/28/18 Carvedilol 6.25 mg PO BID 03/28/18 Furosemide 20 mg PO DAILY 03/28/18 Spironolactone 12.5 mg PO DAILY 03/28/18 Objective - Vital Signs/Intake & Output Reviewed Vital Signs: Yes Vital Signs: Vital Signs x48h Temp Pulse Resp BP Pulse Ox 03/29/18 12:12 36.3 C L 91 18 114/62 96 Intake & Output: Intake & Output 03/26/18 03/27/18 03/28/18 03/29/18 23:59 23:59 23:59 23:59 Intake Total 340 Balance 340 - Objective General Appearance: positive: No acute distress, Alert Eyes Bilateral: positive: Normal inspection, PERRL ENT: positive: No signs of dehydration, Pharyngeal erythema, Oral lesions, Other (neck swelling related to recent oral surgery with abcsess drainage. An exterior remains to right jaw.) Neck: positive: No JVD, Lymphadenopathy (R), Lymphadenopathy (L), Stiff neck, Other (swelling right greater than left. Still with firm swelling surrounding much of his exterior right cheek. Much improved since admission, now post-op.) Respiratory: positive: Chest non-tender, No respiratory distress, Other ( diminished, bilaterally. No oxygen needs.) Cardiovascular: positive: Regular rate & rhythm, No gallop, Systolic murmur, Decreased pulse(s) Peripheral Pulses: 1+ Dorsalis pedis (R), 1+ Dorsalis pedis (L) Abdomen: positive: Non-tender, Nml bowel sounds, Other (rounded, soft. Increased abdominal girth.) Back: positive: Nml inspection Skin: positive: No rash, Warm, Dry, Pallor Extremities: positive: Non-tender, Full ROM, Nml appearance, No pedal edema Neurologic/Psychiatric: positive: Oriented x3, CN's nml (2-12), Motor nml, Sensation nml, Facial droop (mild, only due to right facial swelling.), Slurred/ abnml speech, Depressed mood/affect Reflexes: Bicep (R): 3+, Bicep (L): 3+ - Lab Results Fish Bones: 03/30/18 05:30 03/30/18 05:30 - Diagnostic Imaging Diagnostic Imaging Results: positive: Final report reviewed ABX Reporting Has patient been on IV antibiotics over the past 48 hours?: Yes Assessment/Plan - Problem List (1) CAD (coronary artery disease) Impression: The patient has a known history of this and is post 4-coronary stents in the year 2016. Since moving from [place], he has not established care with a new Insurance Operations Rep. He comes in on Lipitor, spironolactone, coreg, and furosemide. Plan: Continue medications and monitor on telemetry. Qualifiers: Coronary Disease-Associated Artery/Lesion type: unspecified vessel or lesion type (2) Dental abscess Impression: The patient presented to the ED with right facial swelling. As per imaging that was completed in the ED, this right facial abscess was caused by a wisdom tooth (#32). The patient underwent an I & D with Dr. Jeffery Scanlon, maxillofacial surgeon without any unexpected complications. He had a remarkable improvement since the time of admission. The odor once noticed, likely caused by his absess is now absent. Upon exam the abscess is less tender, reduced in size by half, and he is able to move his mouth much better. He has been attempting meals, but complains about the texture of his new pureed diet. Plan: Continue plan of care. (3) Sick-euthyroid syndrome Impression: The patient was noted to have a low TSH of 0.32. The patient denies symptoms such as palpitations, difficulty sleeping, etc. He denies previous thyroid illness, and asked more about the function of the thyroid upon exam. Since follow up labs Free T4/Free T3 are normal, we can attribute this lab abnormality to his advanced heart failure. Plan: Continue to monitor and upon discharge recommend follow up with established PCP. (4) Systolic CHF with reduced left ventricular function, NYHA class 2 Impression: The patient is found to have an unfortunate reduced EF of <20%-preliminary bedside echo results. This is improved from 2013 when it was only 15%, but he has had 4 coronary stents since that time. I have questioned his medication compliance, and he claims to be very faithful with his medications. 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 We will plan to closely monitor cardiac function on telemetry and make adjustments based on new echo findings. Plan: Start very low dose ROBERT inhibitor and double the Coreg dose for continued tachycardia. (5) Iron deficiency anemia Impression: The patient was found to have a slightly low hemoglobin an hematocrit of 13.4/ 40.6 upon admsission. Follow up iron studies confirm iron deficiency anemia. Plan: Start iron supplement and monitor labs. Qualifiers: Iron deficiency anemia type: unspecified iron deficiency Qualified Code(s) : D50.9 - Iron deficiency anemia, unspecified
[2018-03-29] MEDS: cefTRIAXone 1 GM in SODIUM CHLORIDE 0.9% MINIBAG 100 ML IV SCH (18:24)
[2018-03-29] MEDS ORDERED: LISINOPRIL 5 MG TABLET PO SCH (19:25)
[2018-03-29] MEDS: FERROUS SULFATE 325 MG TABLET PO SCH (20:05)
[2018-03-29] MEDS: CARVEDILOL 12.5 MG TABLET PO SCH (20:05)
[2018-03-29] MEDS ORDERED: ATORVASTATIN 40 MG TABLET PO SCH (21:00)
[2018-03-30] MEDS: metroNIDAZOLE 500 MG/100 ML 500 MG/100 ML BAG IV SCH ×2 (01:07→10:21)
[2018-03-30] MEDS: SODIUM CHLORIDE FLUSH 0.9% 10 ML SYRINGE IVP SCH ×2 (01:18→08:01)
[2018-03-30] MEDS: SODIUM CHLORIDE FLUSH 0.9% 10 ML SYRINGE IVP PRN (02:31)
[2018-03-30] MEDS: ACETAMINOPHEN 325 MG TABLET PO PRN (05:01)
[2018-03-30 06:14] LABS: BASOPHILS % (AUTO) 0.2 %; EOSINOPHILS % (AUTO) 0.2 %; HGB - HEMOGLOBIN 11.8 g/dL (14.0-18.0); LYMPHOCYTES # (AUTO) 1.4 10^3/uL (1.5-3.5); LYMPHOCYTES % (AUTO) 13.6 %; MEAN CORPUSCULAR HEMOGLOBIN 30.9 pg (27.0-31.0); MEAN CORPUSCULAR HGB CONC 32.1 g/dL (32.0-36.0); MEAN CORPUSCULAR VOLUME 96.1 fL (80.0-94.0); MEAN PLATELET VOLUME 7.5 fL (7.4-11.4); MONOCYTES # (AUTO) 1.1 10^3/uL (0.0-1.0); MONOCYTES % (AUTO) 10.6 %; NEUTROPHILS % (AUTO) 75.4 %; PLT - PLATELET COUNT 217 10^3/uL (130-450); RED BLOOD COUNT 3.82 10^6/uL (4.70-6.10); WHITE BLOOD COUNT 10.6 x10^3/uL (4.8-10.8)
[2018-03-30 06:25] LABS: ALBUMIN 2.6 g/dL (3.2-5.5); ALBUMIN/GLOBULIN RATIO 0.7 (1.0-2.2); BILIRUBIN,TOTAL 0.5 mg/dL (0.2-1.0); CALCIUM 8.6 mg/dL (8.5-10.3); CREATININE 1.1 mg/dL (0.6-1.2); TOTAL PROTEIN 6.2 g/dL (6.7-8.2)
[2018-03-30] MEDS: SACCHAROMYCES BOULARDII 250 MG CAPSULE PO SCH (07:53)
[2018-03-30] MEDS: FERROUS SULFATE 325 MG TABLET PO SCH (07:53)
--- NOTE | 2018-03-30 07:54 | PROVIDER PROGRESS NOTE ---
Subjective - Prog Note Date Prog Note Date: 03/30/18 Prog Note Time: 07:51 - Subjective Pt reports feeling: Improved (Reports feeling mildly improved. No events overnight Has been very active Good PO intake Pain well controlled No fevers during this hospitalization) Objective - Vital Signs/Intake & Output Vital Signs: Vital Signs x48h Temp Pulse Resp BP Pulse Ox 03/30/18 07:44 36.7 C 81 16 111/68 98 03/30/18 05:05 36.7 C 62 16 104/68 98 03/30/18 00:00 36.9 C 88 16 94/59 L 100 Intake & Output: Intake & Output 03/27/18 03/28/18 03/29/18 03/30/18 23:59 23:59 23:59 23:59 Intake Total 1330 370 Balance 1330 370 - Objective General Appearance: positive: No acute distress, Alert ENT: positive: Other (IBRAHIMA Stable today around 25mm. FOM s, nt,ne. Uvula midline, no lateral pharyngeal swelling. Extraction site clean. Sutures intact. No purulent drainage.) Neck: positive: Other (Swelling stable since yesterday. Clear SS drainage, no purulence. Drain intact.) - Lab Results Fish Bones: 03/30/18 05:30 03/30/18 05:30 Other Labs: Lab Results x24hrs 03/30/18 03/30/18 03/30/18 Range/Units 05:30 05:30 05:30 WBC 10.6 (4.8-10.8) x10^3/uL RBC 3.82 L (4.70-6.10) 10^6/uL Hgb 11.8 L (14.0-18.0) g/dL Hct 36.7 L (42.0-52.0) % MCV 96.1 H (80.0-94.0) fL MCH 30.9 (27.0-31.0) pg MCHC 32.1 (32.0-36.0) g/dL RDW 15.0 (12.0-15.0) % Plt Count 217 (130-450) 10^3/uL MPV 7.5 (7.4-11.4) fL Neut # (Auto) 8.0 H (1.5-6.6) 10^3/uL Lymph # (Auto) 1.4 L (1.5-3.5) 10^3/uL Ralls # (Auto) 1.1 H (0.0-1.0) 10^3/uL Eos # (Auto) 0.0 (0.0-0.7) 10^3/uL Baso # (Auto) 0.0 (0.0-0.1) 10^3/uL Absolute Nucleated RBC 0.04 x10^3/uL Nucleated RBC % 0.3 /100WBC Sodium 133 L (135-145) mmol/L Potassium 4.5 (3.5-5.0) mmol/L Chloride 102 (101-111) mmol/L Carbon Dioxide 23 (21-32) mmol/L Anion Gap 8.0 (6-13) BUN 25 H (6-20) mg/dL Creatinine 1.1 (0.6-1.2) mg/dL Estimated GFR (MDRD) 67 L (>89) Glucose 135 H (70-100) mg/dL Calcium 8.6 (8.5-10.3) mg/dL Magnesium (1.7-2.8) mg/dL Total Bilirubin 0.5 (0.2-1.0) mg/dL AST 27 (10-42) IU/L ALT 24 (10-60) IU/L Alkaline Phosphatase 85 (42-121) IU/L Troponin I (<0.49) ng/mL B-Natriuretic Peptide 812 H (5-100) pg/mL Total Protein 6.2 L (6.7-8.2) g/dL Albumin 2.6 L (3.2-5.5) g/dL Globulin 3.6 (2.1-4.2) g/dL Albumin/Globulin Ratio 0.7 L (1.0-2.2) 18 03/29/18 Range/Units 23:00 23:00 WBC (4.8-10.8) x10^3/uL RBC (4.70-6.10) 10^6/uL Hgb (14.0-18.0) g/dL Hct (42.0-52.0) % MCV (80.0-94.0) fL MCH (27.0-31.0) pg MCHC (32.0-36.0) g/dL RDW (12.0-15.0) % Plt Count (130-450) 10^3/uL MPV (7.4-11.4) fL Neut # (Auto) (1.5-6.6) 10^3/uL Lymph # (Auto) (1.5-3.5) 10^3/uL Ralls # (Auto) (0.0-1.0) 10^3/uL Eos # (Auto) (0.0-0.7) 10^3/uL Baso # (Auto) (0.0-0.1) 10^3/uL Absolute Nucleated RBC x10^3/uL Nucleated RBC % /100WBC Sodium (135-145) mmol/L Potassium 4.5 (3.5-5.0) mmol/L Chloride (101-111) mmol/L Carbon Dioxide (21-32) mmol/L Anion Gap (6-13) BUN (6-20) mg/dL Creatinine (0.6-1.2) mg/dL Estimated GFR (MDRD) (>89) Glucose (70-100) mg/dL Calcium (8.5-10.3) mg/dL Magnesium 2.0 (1.7-2.8) mg/dL Total Bilirubin (0.2-1.0) mg/dL AST (10-42) IU/L ALT (10-60) IU/L Alkaline Phosphatase (42-121) IU/L Troponin I < 0.04 (<0.49) ng/mL B-Natriuretic Peptide (5-100) pg/mL Total Protein (6.7-8.2) g/dL Albumin (3.2-5.5) g/dL Globulin (2.1-4.2) g/dL Albumin/Globulin Ratio (1.0-2.2) Assessment/Plan - Problem List (1) Dental abscess Impression: 67 yo M POD #2 s/p I&D of the R masseteric sp and removal of tooth #32. - Exam mildly improved since yesterday BNP down to 800 from 1300 EF 20% P: OK for d/c from OMFS standpoint. D/c pending resolution of other acute medical issues. - will f/u in my office daily for monitoring of abscess resolution - Augmentin 875 BID x 10 days for d/c - Chlorhexidine mouthrinse BID - continue IV abx while in house Jeffery Scanlon, FARRAH [phone]
[2018-03-30] MEDS: POLYETHYLENE GLYCOL 3350 17 GM PACKET PO SCH (07:56)
[2018-03-30] MEDS: CHLORHEXIDINE GLUCONATE 15 ML UDC PO SCH (08:01)
[2018-03-30] MEDS: CARVEDILOL 12.5 MG TABLET PO SCH (08:01)
[2018-03-30] MEDS: SPIRONOLACTONE 25 MG TABLET PO SCH (08:01)
[2018-03-30] MEDS: FUROSEMIDE 40 MG/4 ML VIAL IVP SCH (08:14)
--- NOTE | 2018-03-30 08:35 | Discharge Plan ---
Discharge Plan Disposition: Home, Self Care Condition: Good Prescriptions: Acetaminophen [Tylenol] 650 mg PO Q4HR PRN #60 tablet PRN Reason: Pain Or Fever > 38c (100.4f) Amox/Clav 875/125 [Augmentin] 1 each PO Q12H 10 Days #20 tablet Aspirin [Aspirin EC] 81 mg PO DAILY #30 tablet. Carvedilol [Coreg] 12.5 mg PO BID #60 tablet Ferrous Sulfate 325 mg PO BID #60 tablet Lactobacillus Acidophilus [Digestive Probiotic] 1 each PO BID 20 Days #40 capsule Lisinopril 2.5 mg PO DAILY #30 tablet Diet: Soft Activity Restrictions: No Restrictions Shower Restrictions: No Driving Restrictions: No Weight Bearing: Full Weight Additional Instructions or Follow Up instructions: You were admitted for a right facial abcsess that was found to be caused by a wisdom tooth. Dr. Jeffery Scanlon, maxillofacial surgery performed an I&D of the R masseteric sp and removal of tooth #32. Please take all 10 days of Augmentin twice daily and a probiotic. See him as planned tomorrow for a wound check and continue with recommended mouth exercises. You were found to have a low TSH, but follow up testing proved that you do not have a thyroid disorder and this lab was a consequence that we see in patients with heart failure. A echocardiogram was completed since you came in on cardiac medications and you told us that you have had 4 coronary stents. The last recorded echo was from 2013, which was compared to now. You should being a baby dose of Aspirin and a new medicine of Lisinopril 2.5mg daily to treat your heart failure. You have heart failure with a reduced ejection fraction of ~20%. 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 Dr. Fabian and Dr. Meyer both come to our [facility] at least weekly if it is more convenient. I have referred you to cardiac rehab since you qualify for this service with having a history of a heart attack and a reduced EF. You will need to establish care with a PCP as soon as you can. Our care management team gave you a list of providers according to your insurance. You also have pulmonary hypertension. This means that your heart has high right sided pressures. You are on the correct medication for this, but you should not put anything into your lungs from now on to prevent worsening. You were found to have low blood counts, so iron studies were checked that shows iron deficiency anemia. Please start taking an iron supplement twice daily and have your PCP re-check blood levels within one month. See your PCP within one week. Follow-Up Care: [facility] - Cardiac No Smoking: If you smoke, Please STOP! Call for help.
--- NOTE | 2018-03-30 08:38 | DISCHARGE SUMMARY ---
Discharge Summary Admit Date: 03/28/18 Discharge Date: 03/30/18 Discharging Provider: JERRICA Collins Primary Care Provider: Genesis echavarria referral Code Status: Attempt Resuscitation Condition at Discharge: Good Discharge Disposition: 01 Home, Self Care - DIAGNOSES Admission Diagnoses: Atherosclerotic heart disease of [place] coronary artery without angina pectoris (I25.10) Periapical abscess without sinus (K04.7) Encounter for other preprocedural examination (Z01.818) Discharge Diagnoses with Status of Each Condition: CAD (coronary artery disease) (I25.10) -chronic, stable. Dental abscess (K04.7) -new on this admit, now post-op, treatment to continue. Pulmonary hypertension, moderate to severe (I27.20) -chronic, treatment to continue. Systolic CHF with reduced left ventricular function, NYHA class 2 (I50.20) - stable, medication adjustments. 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 Iron deficiency anemia (D50.9) -new on this admit, iron supplement to continue. - HPI History of Present Illness: Wm Milan is a 67-year old white male with a prominent cardiac history including HTN, hyperlipidemia, coronary stents x4, CHF, nocturia, dental caries , arthritis, tobacco dependence, alcohol dependence and occasional marijuana use. He presented to the ED after about a 5 day history of increased right facial pain, swelling that has grown significantly ever since 2 days ago when he noticed "a pop in my jaw". Today this swelling involved his right lips to the point he can no longer open his mouth. He denies recent fevers, chills, nausea, vomiting, headaches or a new cough. Once in the ED the maxillofacial surgeon was called and believes that due to the extent of this abscess, further IV treatment post-op will be necessary. He will undergo a right facial I & D and be medically managed by the Hospitalist service for this hospitalization. - CONSULTS | PROCEDURES Consultations: Maxillofacial surgery Dr. Jeffery Scanlon - HOSPITAL COURSE Hospital Course: The following diagnoses were prevalent during this hospital stay: (1) CAD (coronary artery disease) The patient has a known history of this and is post 4-coronary stents in the year 2016. Since moving from [place], he has not established care with a new [employer]. He comes in on Lipitor, spironolactone, coreg, and furosemide. This is considered to stable upon discharge. (2) Dental abscess The patient presented to the ED with right facial swelling. As per imaging that was completed in the ED, this right facial abscess was caused by a wisdom tooth (#32). The patient underwent an I & D with Dr. Jeffery Scanlno, maxillofacial surgeon without any unexpected complications. He had a remarkable improvement since the time of admission. The odor once noticed, likely caused by his abscess is now absent. Upon exam the abscess is less tender, reduced in size by half, and he is able to move his mouth much better. He had been attempting meals, but complains about the texture of his new pureed diet. He was discharged on a soft diet. (3) Sick-euthyroid syndrome The patient was noted to have a low TSH of 0.32. The patient denies symptoms such as palpitations, difficulty sleeping, etc. He denies previous thyroid illness, and asked more about the function of the thyroid upon exam. Since follow up labs Free T4/Free T3 are normal, we can attribute this lab abnormality to his advanced heart failure. This should be addressed by PCP. (4) Systolic CHF with reduced left ventricular function, NYHA class 2 The patient is found to have an unfortunate reduced EF of <20%-preliminary bedside echo results. This is improved from 2014 when it was only 15%, but he has had 4 coronary stents since that time. I have questioned his medication compliance, and he claims to be very faithful with his medications. He also admits to a lack of medical care, and no longer has a statement distribution clerk. We will plan to closely monitor cardiac function on telemetry and make adjustments based on new echo findings. A very low dose ROBERT inhibitor was started and the Coreg dose was doubled for continued tachycardia. (5) Iron deficiency anemia The patient was found to have a slightly low hemoglobin an hematocrit of 13.4/ 40.6 upon admission. Follow up iron studies confirm iron deficiency anemia. The patient was started on iron supplement and monitor labs. Disposition: The patient was instable condition and very anxious to return home on the day of discharge. He ensured us that he would make his best efforts to obtain a PCP and to see the surgeon tomorrow. - ALLERGIES Allergies/Adverse Reactions: Allergies Allergy/AdvReac Type Severity Reaction Status Date / Time No Known Drug Allergies Allergy Verified 03/28/18 06:53 - MEDICATIONS Home Medications: Ambulatory Orders Medication Instructions Recorded Confirmed Atorvastatin Calcium 80 mg PO QPM 03/28/18 03/28/18 Furosemide 20 mg PO DAILY 03/28/18 03/28/18 Spironolactone 12.5 mg PO DAILY 03/28/18 03/28/18 Acetaminophen [Tylenol] 650 mg PO Q4HR PRN #60 tablet 03/30/18 Amox/Clav 875/125 [Augmentin] 1 each PO Q12H 10 Days #20 tablet 03/30/18 Aspirin [Aspirin EC] 81 mg PO DAILY #30 tablet. 03/30/18 Carvedilol [Coreg] 12.5 mg PO BID #60 tablet 03/30/18 Ferrous Sulfate 325 mg PO BID #60 tablet 03/30/18 Lactobacillus Acidophilus 1 each PO BID 20 Days #40 capsule 03/30/18 [Digestive Probiotic] Lisinopril 2.5 mg PO DAILY #30 tablet 03/30/18 Polyethylene Glycol 3350 [Miralax] 17 gm PO DAILY packet 03/30/18 - PHYSICAL EXAM AT DISCHARGE General Appearance: positive: No acute distress, Alert Eyes Bilateral: positive: Normal inspection, PERRL ENT: positive: ENT inspection nml, Pharynx nml Neck: positive: No JVD, Lymphadenopathy (R) (right greater than left.), Lymphadenopathy (L) Respiratory: positive: Chest non-tender, No respiratory distress, Breath sounds nml Cardiovascular: positive: No gallop, Irregularly irregular, Systolic murmur, Decreased pulse(s) Peripheral Pulses: positive: 2+ Abdomen: positive: Non-tender, Nml bowel sounds, Other (rounded, soft) Back: positive: Nml inspection Skin: positive: No rash, Warm, Dry Extremities: positive: Non-tender, Full ROM, Nml appearance, No pedal edema Neurologic/Psychiatric: positive: Oriented x3, CN's nml (2-12), Motor nml, Sensation nml, Depressed mood/affect Reflexes: Bicep (R): 3+, Bicep (L): 3+, Ankle (R): 3+, Ankle (L): 3+ - LABS Result Diagrams: 03/30/18 05:30 03/30/18 05:30 - DIAGNOSTIC IMAGING Diagnostic Imaging Results: Final report reviewed Diagnostic Imaging Results Comments: EXAM: CT MAXILLOFACIAL WITH CONTRAST EXAM DATE: 03/28/2018 09:21 AM. CLINICAL HISTORY: Right facial swelling; ?abscess. COMPARISONS: None. TECHNIQUE: Thin-section axial images were acquired of the face after administration of intravenous contrast. Post-processing: Coronal and sagittal reformats. Other: None. IV contrast: 100 cc Isovue-300. In accordance with CT protocol optimization, one or more of the following dose reduction techniques were utilized for this exam: automated exposure control, adjustment of mA and/or KV based on patient size, or use of iterative reconstructive technique. FINDINGS: Irregularly shaped, peripherally enhancing low attenuation collection centered in the right park interpretive ranger space (in the right masseter and buccinator muscle) measuring up to 3.8 x 1.7 x 3.8 cm most likely represents odontogenic abscess. There is decayed partially erupted right maxillary third molar with significant lucencies around the tooth. Lateral right mandibular cortical breakthrough adjacent to the root of the tooth (axial image 76 series 3). Significant soft tissue swelling and fat stranding in the bilateral submandibular and submental region. A similar decayed unerupted or partially erupted left mandibular third molar is demonstrated. [place]-radicular lucency around the root of decayed left mandibular molar is also demonstrated extending laterally with cortical breakthrough of the adjacent mandible (axial image 77 series 4) without evidence for abscess. Changes compatible with cartilaginous nasal septal perforation. Paranasal sinuses and mastoid air cells are unremarkable. Nasopharynx, oropharynx, hypopharynx, larynx appear unremarkable. There are findings of right vocal cord paresis with medialization of the right vocal cord, enlargement of the ipsilateral right piriform sinus. Visible intracranial contents appear unremarkable. Intracranial vasculature shows mild atherosclerotic calcification of the cavernous carotid segment otherwise unremarkable. Orbits and extracranial soft tissue appear unremarkable. Parapharyngeal space, retropharyngeal space appear unremarkable. There is approximately 40% stenosis of bilateral internal carotid arteries with atherosclerotic calcifications. Alignment of the cervical spine is within normal. No suspicious lytic or sclerotic osseous lesions. IMPRESSION: 1. Large irregular, peripherally enhancing abscess in the right park interpretive ranger space (right masseter and buccinator muscle), most likely odontogenic abscess originating from a decayed partially erupted right mandibular third molar. No evidence for submandibular abscess or floor of mouth abscess. 2. Similar decayed partially erupted left mandibular third molar. 3. Decayed left mandibular first molar with quita-radicular lucency and periodontal disease. 4. Changes compatible with cartilaginous nasal septal perforation. 5. 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 6. Atherosclerotic calcified and noncalcified plaque of bilateral carotid bifurcation with less than 50% stenosis. EXAM: XR/CXR1VW (25785) CHEST ONE VIEW: 03/28/2018 HISTORY: Preoperative, cough. COMPARISON: 08/11/[address] FINDINGS: The lungs are clear. No pleural effusion or pneumothorax. Heart size appears enlarged, some of which is related to the AP portable technique. IMPRESSION: CLEAR LUNGS. - FOLLOW UP Follow Up: Disposition: Home, Self Care Condition: Good Prescriptions: Acetaminophen [Tylenol] 650 mg PO Q4HR PRN #60 tablet PRN Reason: Pain Or Fever > 38c (100.4f) Amox/Clav 875/125 [Augmentin] 1 each PO Q12H 10 Days #20 tablet Aspirin [Aspirin EC] 81 mg PO DAILY #30 tablet. Carvedilol [Coreg] 12.5 mg PO BID #60 tablet Ferrous Sulfate 325 mg PO BID #60 tablet Lactobacillus Acidophilus [Digestive Probiotic] 1 each PO BID 20 Days #40 capsule Lisinopril 2.5 mg PO DAILY #30 tablet Diet: Soft Activity Restrictions: No Restrictions Shower Restrictions: No Driving Restrictions: No Weight Bearing: Full Weight Additional Instructions or Follow Up instructions: You were admitted for a right facial abcsess that was found to be caused by a wisdom tooth. Dr. Jeffery Scanlon, maxillofacial surgery performed an I&D of the R masseteric sp and removal of tooth #32. Please take all 10 days of Augmentin twice daily and a probiotic. See him as planned tomorrow for a wound check and continue with recommended mouth exercises. You were found to have a low TSH, but follow up testing proved that you do not have a thyroid disorder and this lab was a consequence that we see in patients with heart failure. A echocardiogram was completed since you came in on cardiac medications and you told us that you have had 4 coronary stents. The last recorded echo was from 2013, which was compared to now. You should being a baby dose of Aspirin and a new medicine of Lisinopril 2.5mg daily to treat your heart failure. You have heart failure with a reduced ejection fraction of ~20%. You will need a statement distribution clerk in the very near future. Dr. Fabian and Dr. Meyer both come to our [facility] clinic at least weekly if it is more convenient. I have referred you to cardiac rehab since you qualify for this service with having a history of a heart attack and a reduced EF. You will need to establish care with a PCP as soon as you can. Our care management team gave you a list of providers according to your insurance. You also have pulmonary hypertension. This means that your heart has high right sided pressures. You are on the correct medication for this, but you should not put anything into your lungs from now on to prevent worsening. You were found to have low blood counts, so iron studies were checked that shows iron deficiency anemia. Please start taking an iron supplement twice daily and have your PCP re-check blood levels within one month. See your PCP within one week. - TIME SPENT Time Spent in Discharge (Minutes): 60
[2018-03-30] MEDS ORDERED: FUROSEMIDE 20 MG TABLET PO SCH (09:00)
[2018-03-30] MEDS ORDERED: LISINOPRIL 5 MG TABLET PO SCH (11:08)
[2018-03-30 11:30] VITALS: BP 98/59
== END 2018-03-30 12:17 | disposition home or self-care (01) | DRG 603 ==
LOC: ED 06:43 → MS2 11:14 → OBSVTOIN 03-29 11:56
PROVIDERS: ADMIT Nurse Practitioner; ATTEND Nurse Practitioner
PROC: 0CTX0Z0 Resection of Lower Tooth, Single, Open Approach (ICD-10-PCS; 2018-03-28)
PROC: 0H94XZZ Drainage of Neck Skin, External Approach (ICD-10-PCS; principal; 2018-03-28 14:00)
DX: L02.01 Cutaneous abscess of face (principal); K12.2 Cellulitis and abscess of mouth; M27.2 Inflammatory conditions of jaws; I50.22 Chronic systolic (congestive) heart failure; K04.1 Necrosis of pulp; K01.1 Impacted teeth; I25.10 Atherosclerotic heart disease of native coronary artery without angina pectoris; R25.2 Cramp and spasm; E86.0 Dehydration; R73.9 Hyperglycemia, unspecified; E87.5 Hyperkalemia; K04.7 Periapical abscess without sinus; I50.9 Heart failure, unspecified; I27.20 Pulmonary hypertension, unspecified; F17.210 Nicotine dependence, cigarettes, uncomplicated; I11.0 Hypertensive heart disease with heart failure; F12.20 Cannabis dependence, uncomplicated; E07.81 Sick-euthyroid syndrome; D50.9 Iron deficiency anemia, unspecified; E78.5 Hyperlipidemia, unspecified; Z83.3 Family history of diabetes mellitus; K02.9 Dental caries, unspecified; F17.200 Nicotine dependence, unspecified, uncomplicated; F10.20 Alcohol dependence, uncomplicated; I25.2 Old myocardial infarction; Z79.899 Other long term (current) drug therapy; Z95.5 Presence of coronary angioplasty implant and graft
CPT/HCPCS: 10061; 41899; G0378; 36415; 70487; 71045; 80048; 80053; 82977; 83036; 83540; 83735; 83880; 84132; 84439; 84443; 84466; 84481; 84484; 85025; 85610; 85651; 85730; 86140; 87070; 87205; 93306; 96361; 96365; 96366; 96367; 96375; 96376; 99283; 99284

== ENCOUNTER 2019-01-11 20:26 | Emergency (ER) | payer MEDICARE ==
[2019-01-11] MEDS ORDERED: HYDROmorphone 1 MG/ML CARPUJECT IVP STA (20:57)
[2019-01-11] MEDS ORDERED: ONDANSETRON 4 MG/2 ML VIAL IVP STA (20:57)
--- NOTE | 2019-01-11 21:00 | ED Physician Documentation ---
PD HPI ABD PAIN - Stated complaint Stated Complaint: ABDOMINAL PX - Chief complaint Chief Complaint: Abd Pain - History obtained from History obtained from: Patient - History of Present Illness Timing - onset: Today (68-year-old gentleman with history of coronary disease, stents in place but not currently on anticoagulation or clopidogrel presents with sudden onset lower abdominal pain starting tonight at 6 PM. Prior to that he felt [place] constipated and had not had a bowel movements. He has a long- standing scrotal hernia which was recommended to have it fixed but it sounds like he was lost to follow-up there.) Review of Systems Ten Systems: 10 systems reviewed and negative Constitutional: denies: Fever, Chills Cardiac: denies: Chest pain / pressure, Palpitations Respiratory: denies: Dyspnea, Cough PD PAST MEDICAL HISTORY - Past Medical History Cardiovascular: Congestive heart failure, Hypertension, High cholesterol, Coronary artery disease Respiratory: None Neuro: None Endocrine/Autoimmune: None GI: None : None HEENT: None Psych: None Musculoskeletal: Osteoarthritis Derm: None - Past Surgical History Past Surgical History: Yes Cardiovascular: Coronary stent HEENT: Tonsil/Adenoidectomy - Present Medications Home Medications: Ambulatory Orders Medication Instructions Recorded Confirmed RX: Atorvastatin Calcium 80 mg PO QPM 03/28/18 01/11/19 RX: Furosemide 20 mg PO DAILY 03/28/18 01/11/19 RX: Spironolactone 12.5 mg PO DAILY 03/28/18 01/11/19 Aspirin [Aspirin EC] 81 mg PO DAILY #30 tablet. 03/30/18 01/11/19 RX: Acetaminophen [Tylenol] 650 mg PO Q4HR PRN #60 tablet 03/30/18 01/11/19 RX: Carvedilol [Coreg] 12.5 mg PO BID #60 tablet 03/30/18 01/11/19 RX: Lisinopril 2.5 mg PO DAILY #30 tablet 03/30/18 01/11/19 Ciprofloxacin HCl [Cipro] 500 mg PO BID #20 tablet 01/11/19 Hydrocodone/Acetaminophen 1 - 2 each PO Q6H PRN #14 tablet 01/11/19 [Hydrocodon-Acetaminophen 5-325] Metronidazole [Flagyl] 500 mg PO TID #30 tablet 01/11/19 - Allergies Allergies/Adverse Reactions: Allergies Allergy/AdvReac Type Severity Reaction Status Date / Time No Known Drug Allergies Allergy Verified 03/28/18 06:53 - Social History Does the pt smoke?: No Smoking Status: Former smoker Does the pt drink ETOH?: No Does the pt have substance abuse?: No - Immunizations Immunizations are current?: No Immunizations: TDAP >10years/unknown - POLST Patient has POLST: No POLST Status: Full Code PD ED PE NORMAL - Vitals Vital signs reviewed: Yes - General General: Alert and oriented X 3, Other (He appears uncomfortable and is curled up in a ball and pain) - HEENT HEENT: PERRL, EOMI - Neck Neck: Supple, no meningeal sign, No bony TTP - Cardiac Cardiac: RRR, No murmur - Respiratory Respiratory: No respiratory distress, Clear bilaterally - Abdomen Abdomen: Other (Mild tenderness to the low abdomen without surgical sign, no appreciable bowel tones.) - Male Male : Other (The scrotum is quite swollen to the size of a softball with some skin discoloration and very tender. I do not feel an obvious hernia mass but hard to appreciate given how tender he is.) - Derm Derm: Normal color, Warm and dry - Extremities Extremities: No edema, No calf tenderness / cord - Neuro Neuro: Alert and oriented X 3, Normal speech - Psych Psych: Normal mood, Normal affect Results - Vitals Vitals: Vital Signs - 24 hr 01/11/19 01/11/19 01/11/19 20:30 21:11 21:16 Temperature 36.6 C Heart Rate 114 H 113 H 113 H Respiratory 20 16 16 Rate Blood Pressure 141/93 H 126/76 126/76 O2 Saturation 97 96 94 01/11/19 01/11/19 01/11/19 21:35 22:11 22:40 Temperature 36.4 C L Heart Rate 120 H 120 H 113 H Respiratory 18 16 18 Rate Blood Pressure 133/87 H 137/93 H 130/72 O2 Saturation 96 95 100 Oxygen O2 Source Room air - Labs Labs: Laboratory Tests 01/11/19 01/11/19 20:55 20:55 WBC 8.7 RBC 5.66 Hgb 16.4 Hct 50.8 MCV 89.7 MCH 28.9 MCHC 32.2 RDW 16.4 H Plt Count 188 MPV 8.1 Neut # (Auto) 7.3 H Lymph # (Auto) 0.6 L [place] # (Auto) 0.7 Eos # (Auto) 0.0 Baso # (Auto) 0.0 Absolute Nucleated RBC 0.02 Nucleated RBC % 0.2 Sodium 136 Potassium 5.4 H Chloride 98 L Carbon Dioxide 26 Anion Gap 12.0 BUN 23 H Creatinine 1.2 Estimated GFR (MDRD) 60 L Glucose 140 H Calcium 9.6 Total Bilirubin 1.9 H AST 33 ALT 34 Alkaline Phosphatase 100 Total Protein 7.8 Albumin 3.7 Globulin 4.1 Albumin/Globulin Ratio 0.9 L Lipase 27 PD MEDICAL DECISION MAKING - ED course ED course: This is a 68-year-old gentleman who presents with acute severe lower abdominal pain associated with very large scrotal hernia. It was felt likely that at outset the hernia was causative, and the surgeon, Dr. Diaz came in promptly and evaluated the patient who felt that an alternative diagnoses such as appendicitis should be sought. CT imaging was done showing uncomplicated diverticulitis and the patient was happy that he might be able to go home without a surgical procedure tonight and he was treated with Cipro and Flagyl. Departure - Departure Disposition: 01 Home, Self Care Clinical Impression: Diverticulitis of gastrointestinal tract Condition: Good Record reviewed to determine appropriate education?: Yes Instructions: ED Diverticulitis Follow-Up: Erick Diaz MD [Provider Admit Priv/Credential] - (within 1-2 weeks) Prescriptions: Ciprofloxacin HCl [Cipro] 500 mg PO BID #20 tablet Hydrocodone/Acetaminophen [Hydrocodon-Acetaminophen 5-325] 1 - 2 each PO Q6H PRN #14 tablet PRN Reason: pain Metronidazole [Flagyl] 500 mg PO TID #30 tablet Comments: If you get worse or if pain is not improving in the next 2-3 days please return for reevaluation. Especially if you are running a fever pain is severe and unrelieved by the pain killers. Follow-up with your doctor this week and with the surgeon in about 2 weeks. As discussed he will need a colonoscopy in approximately 6-8 weeks in follow-up. Discharge Date/Time: 01/11/19 22:46
[2019-01-11 21:04] LABS: BASOPHILS % (AUTO) 0.2 %; EOSINOPHILS % (AUTO) 0.2 %; HGB - HEMOGLOBIN 16.4 g/dL (14.0-18.0); LYMPHOCYTES # (AUTO) 0.6 10^3/uL (1.5-3.5); LYMPHOCYTES % (AUTO) 7.2 %; MEAN CORPUSCULAR HEMOGLOBIN 28.9 pg (27.0-31.0); MEAN CORPUSCULAR HGB CONC 32.2 g/dL (32.0-36.0); MEAN CORPUSCULAR VOLUME 89.7 fL (80.0-94.0); MEAN PLATELET VOLUME 8.1 fL (7.4-11.4); MONOCYTES # (AUTO) 0.7 10^3/uL (0.0-1.0); MONOCYTES % (AUTO) 8.4 %; NEUTROPHILS # (AUTO) 7.3 10^3/uL (1.5-6.6); PLT - PLATELET COUNT 188 10^3/uL (130-450); RED BLOOD COUNT 5.66 10^6/uL (4.70-6.10); RED CELL DISTRIBUTION WIDTH 16.4 % (12.0-15.0); WHITE BLOOD COUNT 8.7 x10^3/uL (4.8-10.8)
[2019-01-11 21:16] LABS: ALBUMIN 3.7 g/dL (3.2-5.5); ALBUMIN/GLOBULIN RATIO 0.9 (1.0-2.2); BILIRUBIN,TOTAL 1.9 mg/dL (0.2-1.0); CALCIUM 9.6 mg/dL (8.5-10.3); CREATININE 1.2 mg/dL (0.6-1.2); TOTAL PROTEIN 7.8 g/dL (6.7-8.2)
[2019-01-11] MEDS ORDERED: SODIUM CHLORIDE 0.9% 1,000 ML IV ONE (21:20)
[2019-01-11] MEDS ORDERED: IOPAMIDOL-300 100 ML VIAL ONE (21:44)
[2019-01-11] MEDS ORDERED: IOPAMIDOL-300 100 ML VIAL IVP ONE (22:17)
[2019-01-11] MEDS ORDERED: CIPROFLOXACIN 250 MG TABLET PO STA (22:26)
[2019-01-11] MEDS ORDERED: HYDROcod/ACET 5/325 Prepack 4 PO STA (22:26)
[2019-01-11] MEDS ORDERED: metroNIDAZOLE 250 MG TABLET PO STA (22:26)
--- NOTE | 2019-01-11 22:27 | CT Report ---
Reason: IV only, low abd pain Procedure Date: 01/11/2019 Accession Number: [id number] / [id number] Procedure: CT - Abdomen/Pelvis W CPT Code: FULL RESULT: EXAM: CT ABDOMEN AND PELVIS EXAM DATE: 01/11/2019 10:14 PM. CLINICAL HISTORY: IV only, low abd pain. COMPARISONS: None. TECHNIQUE: Routine helical CT imaging was performed through the abdomen and pelvis. IV contrast: 100 ML ISOVUE 300. Enteric contrast: No. Reconstructions: Coronal and sagittal. In accordance with CT protocol optimization, one or more of the following dose reduction techniques were utilized for this exam: automated exposure control, adjustment of mA and/or KV based on patient size, or use of iterative reconstructive technique. FINDINGS: Lung Bases: Unremarkable. Liver: Tiny hypodensity in the medial left lobe of the liver, too small to further characterize by CT. Gallbladder/Bile Ducts: Unremarkable. Spleen: Normal. Pancreas: Normal. Adrenal Glands: Normal. Kidneys: 2 cm left renal calculus, nonobstructing. No hydronephrosis. Peritoneal Cavity/Bowel: Sigmoid diverticulitis, without perforation or abscess formation. No small bowel dilatation. No abdominal adenopathy. The appendix is well visualized and normal. Pelvic Organs: Left inguinal hernia, containing omentum, without evidence of bowel herniation. Trace free fluid in the pelvis. No pelvic adenopathy. Vasculature: Atherosclerotic calcification. No aneurysm or dissection. Bones: No significant abnormality. Other: None. IMPRESSION: Uncomplicated sigmoid diverticulitis. Large left inguinal hernia, containing omentum, without evidence of bowel herniation. 2 cm nonobstructing left renal calculus. [facility] The above call report findings were discussed with Rocky Lehman by Dr. Elia Christine at 10:26 PM on 01/11/2019.
[2019-01-11 22:42] VITALS: BP 130/72
== END 2019-01-11 22:46 | disposition home or self-care (01) ==
LOC: ED 20:26
DX: K57.92 Diverticulitis of intestine, part unspecified, without perforation or abscess without bleeding (principal); K40.90 Unilateral inguinal hernia, without obstruction or gangrene, not specified as recurrent; I11.0 Hypertensive heart disease with heart failure; I50.9 Heart failure, unspecified; E78.00 Pure hypercholesterolemia, unspecified; I25.10 Atherosclerotic heart disease of native coronary artery without angina pectoris; Z95.5 Presence of coronary angioplasty implant and graft; Z79.82 Long term (current) use of aspirin; Z87.891 Personal history of nicotine dependence
CPT/HCPCS: 36415; 74177; 80053; 83690; 85025; 96361; 96374; 99284; A9270; J1170; Q9967

== ENCOUNTER 2021-05-11 11:37 | Emergency (ER) | payer MEDICARE ==
--- NOTE | 2021-05-11 12:25 | XRAY Report ---
PROCEDURE: Chest 1 View X-Ray INDICATIONS: Chest Pain TECHNIQUE: One view of the chest was acquired. COMPARISON: 03/28/2018 FINDINGS: Surgical changes and devices: None. Lungs and pleura: No pleural effusions or pneumothorax. Lungs are clear. Mediastinum: Mediastinal contours appear normal. Heart size is enlarged. Bones and chest wall: No suspicious bony lesions. Overlying soft tissues appear unremarkable. IMPRESSION: No acute cardiopulmonary pathology. Reviewed by: Lazaro Cortez MD on 05/11/2021 12:24 PM PDT Approved by: Lazaro Cortez MD on 05/11/2021 12:24 PM PDT Station ID: [id number]
[2021-05-11 12:27] LABS: BASOPHILS % (AUTO) 0.6 %; EOSINOPHILS # (AUTO) 0.1 10^3/uL (0.0-0.7); EOSINOPHILS % (AUTO) 1.3 %; HCT - HEMATOCRIT 50.1 % (42.0-52.0); LYMPHOCYTES % (AUTO) 14.4 %; MEAN CORPUSCULAR HEMOGLOBIN 30.5 pg (27.0-31.0); MEAN CORPUSCULAR HGB CONC 31.9 g/dL (32.0-36.0); MEAN CORPUSCULAR VOLUME 95.6 fL (80.0-94.0); MONOCYTES # (AUTO) 1.2 10^3/uL (0.0-1.0); MONOCYTES % (AUTO) 16.1 %; NEUTROPHILS # (AUTO) 4.8 10^3/uL (1.5-6.6); NEUTROPHILS % (AUTO) 66.9 %; PLT - PLATELET COUNT 139 10^3/uL (130-450); RED BLOOD COUNT 5.24 10^6/uL (4.70-6.10); RED CELL DISTRIBUTION WIDTH 19.9 % (12.0-15.0); WHITE BLOOD COUNT 7.2 x10^3/uL (4.8-10.8)
[2021-05-11] MEDS ORDERED: FUROSEMIDE 40 MG/4 ML VIAL IVP STA (12:28)
--- NOTE | 2021-05-11 12:31 | ED Physician Documentation ---
History of Present Illness - Stated complaint Stated Complaint: SOA,FEET/LEG SWELLING - Chief complaint Chief Complaint: Resp - Additonal information Additional information: 70-year-old male presents the emergency department for evaluation of 3 days bilateral lower extremity feet and leg swelling as well as exertional dyspnea and orthopnea. He does report a history of myocardial infarction approximately 7 years ago. At that time of the ED visit (2013) a cardiac echo completed showed a likely LV thrombus as well as markedly reduced EF of about 20% Pt was ultimately transferred to [facility] where he states he underwent placement of 4 cardiac stents. Pt states that he has not seen his boilermaker apprentice for about 3-4 years. He was taking Coumadin but stopped taking it approximately 3 years ago because he reports that it made him bleed too much. He is not on any current anticoagulation. Here in the emergency department he is mildly tachypneic but not hypoxic. He he denies chest pain. He does have significant swelling of the lower extremities. In review of his medications it appears that he is now out of Lasix for at least a few days. Soc: former smoker. No etoh pcp: Dr. Schultz pmh: HTN, CAD Meds: Atorvastatin, carvedilol, spironolactone, Lasix 20 mg daily, lisinopril 2.5 mg daily. Review of Systems Constitutional: denies: Fever Eyes: reports: Reviewed and negative Ears: reports: Reviewed and negative Nose: reports: Reviewed and negative Throat: reports: Reviewed and negative Cardiac: reports: Pedal edema. denies: Chest pain / pressure, Palpitations, Calf pain Respiratory: reports: Dyspnea. denies: Cough, Hemoptysis, Wheezing GI: denies: Abdominal Pain, Nausea, Vomiting : denies: Frequency, Hesitancy Skin: denies: Rash, Lesions Musculoskeletal: denies: Neck pain, Back pain Neurologic: reports: Reviewed and negative PD PAST MEDICAL HISTORY - Past Medical History Cardiovascular: Congestive heart failure, Hypertension, High cholesterol, Coronary artery disease Respiratory: None Neuro: None Endocrine/Autoimmune: None GI: None : None HEENT: None Psych: None Musculoskeletal: Osteoarthritis Derm: None - Past Surgical History Past Surgical History: Yes Cardiovascular: Coronary stent HEENT: Tonsil/Adenoidectomy - Present Medications Home Medications: Ambulatory Orders Medication Instructions Recorded Confirmed Atorvastatin Calcium 20 mg PO QPM 03/28/18 01/11/19 Furosemide 20 mg PO DAILY 03/28/18 01/11/19 Spironolactone 12.5 mg PO DAILY 03/28/18 01/11/19 Acetaminophen [Tylenol] 650 mg PO Q4HR PRN #60 tablet 03/30/18 01/11/19 Aspirin [Aspirin EC] 81 mg PO DAILY #30 tablet. 03/30/18 01/11/19 lisinopriL [Lisinopril] 2.5 mg PO DAILY #30 tablet 03/30/18 01/11/19 Atorvastatin [Lipitor] 0 mg PO DAILY PM #30 tablet 05/11/21 Furosemide [Lasix] 20 mg PO DAILY #30 tablet 05/11/21 Spironolactone [Aldactone] 25 mg PO DAILY #30 tablet 05/11/21 carvediloL [Coreg] 6.25 mg PO BID 05/11/21 - Allergies Allergies/Adverse Reactions: Allergies Allergy/AdvReac Type Severity Reaction Status Date / Time No Known Drug Allergies Allergy Verified 05/11/21 11:48 - Social History Does the pt smoke?: No Smoking Status: Former smoker Does the pt drink ETOH?: No Does the pt have substance abuse?: No - Immunizations Immunizations are current?: No Immunizations: TDAP >10years/unknown - POLST Patient has POLST: No POLST Status: Full Code PD ED PE EXPANDED - General General: Alert, Other (mild dyspnea) - Neck Neck: Supple w/out meningeal sx. No: Adenopathy - Cardiac Cardiac: Regular Rate, Murmur Present, Radial strong equal, Cap refill < 2 sec - Respiratory Respiratory: Clear to ausultation so, Labored (Mild tachypnea and labored breathing. Worse when supine.). No: Distress, Stridor - Abdomen Abdomen: Normal Bowel sounds, Other (very large unchanged right inguinal hernia). No: Tender to palpation - Male Male : Other (large inguinal hernia) - Derm Derm: Normal color, Warm and dry. No: Rash - Extremities Extremities: Pedal edema bilateral (3+ pitting edema BLE), Pedal Pulses Present. No: Right calf TTP/cord, Left calf TTP/cord - Neuro Neuro: Alert and Oriented X 3, CNII-XII intact - GCS Eye Opening: Spontaneous Motor: Obeys Commands Verbal: Oriented Total: 15 Results - Vitals Vitals: Vital Signs - 24 hr 05/11/21 05/11/21 05/11/21 11:44 12:48 14:00 Temperature 36.4 C L Heart Rate 94 95 100 Respiratory 20 25 H 22 Rate Blood Pressure 119/84 H 151/98 H 134/92 H O2 Saturation 97 97 96 05/11/21 15:54 Temperature 36.5 C Heart Rate 98 Respiratory 24 Rate Blood Pressure 120/92 H O2 Saturation 98 Oxygen O2 Source Room air - EKG (time done) 1209 Rate: Rate (enter#) (93) Rhythm: NSR, Other (multiple PVC's) Childs: LAD, Other Intervals: Normal ID. No: Prolonged QT Ischemia: Non specific changes (lateral leads V5-6) Compare to prior EKG: Old EKG unavailable Computer interpretation: Agree with computer - Labs Labs: Laboratory Tests 05/11/21 05/11/21 05/11/21 12:22 12:22 12:22 WBC 7.2 RBC 5.24 Hgb 16.0 Hct 50.1 MCV 95.6 H MCH 30.5 MCHC 31.9 L RDW 19.9 H Plt Count 139 MPV 11.0 Neut # (Auto) 4.8 Lymph # (Auto) 1.0 L [place] # (Auto) 1.2 H Eos # (Auto) 0.1 Baso # (Auto) 0.0 Absolute Nucleated RBC 0.00 Nucleated RBC % 0.0 Sodium 138 Potassium 4.7 Chloride 104 Carbon Dioxide 20 L Anion Gap 14.0 H BUN 46 H Creatinine 1.2 Estimated GFR (MDRD) 60 L Glucose 113 H Calcium 9.3 Total Bilirubin 1.9 H AST 40 ALT 35 Alkaline Phosphatase 144 H Troponin I High Sens 58.9 H* B-Natriuretic Peptide Total Protein 7.4 Albumin 3.8 Globulin 3.6 Albumin/Globulin Ratio 1.1 Lipase 32 05/11/21 05/11/21 12:22 13:42 WBC RBC Hgb Hct MCV MCH MCHC RDW Plt Count MPV Neut # (Auto) Lymph # (Auto) [place] # (Auto) Eos # (Auto) Baso # (Auto) Absolute Nucleated RBC Nucleated RBC % Sodium Potassium Chloride Carbon Dioxide Anion Gap BUN Creatinine Estimated GFR (MDRD) Glucose Calcium Total Bilirubin AST ALT Alkaline Phosphatase Troponin I High Sens 51.2 H* B-Natriuretic Peptide 2824 H Total Protein Albumin Globulin Albumin/Globulin Ratio Lipase - Rads (name of study) CXR Radiology: Final report received (No acute cardiopulmonary pathology) CT angio chest/aorta protocol Radiology: Final report received (No thrombus within the left ventricle. Moderate cardiomegaly. Severe coronary calcification. Mild mediastinal lymphadenopathy. 9 cm pulmonary nodule right middle lobe. Sclerotic lesion T6 and T11. 16 mm stone left UPJ.) PD MEDICAL DECISION MAKING - ED course Complexity details: reviewed results, re-evaluated patient, d/w patient, d/w computer consultant ( Cardiology at [facility]) ED course: 70-year-old male presents the emergency department for evaluation of 3 days shortness of breath with exertion, orthopnea as well as increased swelling of the lower extremities. He has recently run out of his spironolactone as well as his Lasix. He does have a history of cardiomyopathy, previous [place] requiring 4 cardiac stents as well as an LV thrombus. He was previously anticoagulated on Coumadin but due to cost difficulty managing the INR levels and bleeding concerns the patient stopped taking it for years ago. Screening labs today initially show a troponin of 58 and on repeat is 51. His BNP is markedly elevated at 2400. Chest x-ray however does not show findings of cardiomegaly congestive heart failure or pulmonary edema. Because he had been out of his diuretics he was given 60 mg of Lasix. This markedly improved his shortness of air and he diuresed a fair amount here in the emergency department. However given the history of the LV thrombus my concern was for heart failure as well as probable reoccurrence of the thrombus thus I will reach out to [facility] cardiology. 1430: With Dr. Moffett on-call boilermaker apprentice at [facility]. She reviewed the patient's last visits to [facility] and we discussed her current labs and concerns for possible LV thrombus. Given his history of an echo that shows an ejection fraction of 20% she does not feel that a week echo is warranted at this time. If the CT angio shows an LV thrombus she would simply recommend reinstituting anticoagulation but at this time she feels he would benefit from admission for diuresis Pt declined to start coumadin and levenox today in the ED. He would like to disc uss long-term anticoagulation with Dr. Vallejo first. We discussed the CT results that show no LV thrombus but multiple incidental findings including a UPJ stone with mild hydronephrosis, lymphadenopathy in the abdomen, sclerotic lesions of the thoracic vertebrae as well as a pulmonary nodule that should have repeat CT imaging in 3 months. Given that he had recently received contrast we could not do a CT of the abdomen pelvis today in the ER. I discussed with the patient and his sister at length that these findings were concerning for cancer. I also discussed that not being anticoagulated with a history of the LV thrombus could lead to redevelopment of the thrombus and if that occurs. Patient is aware and understands. At this time he is being discharged home. I did offer hospitalization but he declined that today as well. He will be resuming his hydrochlorothiazide as well as the Lasix. I have told him that he needs very close and prompt follow- up with his primary care provider but that he is to return to the ER if he has any worsening symptoms as soon as possible. Departure - Departure Disposition: 01 Home, Self Care Clinical Impression: Short of breath on exertion, Elevated brain natriuretic peptide (BNP) level, Obstruction of left ureteropelvic junction (UPJ) due to stone, Bony sclerosis, Pulmonary nodule, Abdominal lymphadenopathy Condition: Serious Follow-Up: Migue Schultz MD [Primary Care Provider] - Prescriptions: Spironolactone [Aldactone] 25 mg PO DAILY #30 tablet Furosemide [Lasix] 20 mg PO DAILY #30 tablet Atorvastatin [Lipitor] 0 mg PO DAILY PM #30 tablet Comments: Clement flores are seen in the emergency department today for being short of air and having lower extremity swelling. It appears that you ran out of your water pills a number of days ago and this has contributed to the symptoms. I have refilled your spironolactone, Lasix as well as the atorvastatin. You do have a history of a blood clot in your left ventricle. You stopped arturo ing your anticoagulation a number of years ago. It is advised that you remain on this anticoagulation but you have declined to receive treatment for that today. It is very important you discuss this with Dr. Vallejo. If you develop any new blood clot in your heart it could cause severe stroke or . The CT of your chest did show a number of incidental findings. The most significant one was a 9 mm pulmonary nodule in your right middle lobe. It is recommended that you have a repeat CAT scan in 3 months for follow-up of this as you are a former smoker and this could be a sign of cancer. You also have a kidney stone near your bladder on the left side of your abdomen. This is causing a small amount of swelling in your left kidney. Please discuss this with Dr. Vallejo. You may benefit from referral to a urologist. Finally in addition there were findings of sclerotic bone lesions. This was seen on your thoracic vertebrae. This can sometimes be a sign of cancer or metastatic cancer.. This must be discussed with Dr. Schultz. You need more advanced testing that should likely include a CAT scan of your abdomen. However because we have given you contrast today we cannot repeat the scan at this time. If at any point you feel that your symptoms are worsening you are to return immediately to the ER for a second evaluation. Discharge Date/Time: 05/11/21 15:59
[2021-05-11 12:43] LABS: ALBUMIN 3.8 g/dL (3.2-5.5); ALBUMIN/GLOBULIN RATIO 1.1 (1.0-2.2); BILIRUBIN,TOTAL 1.9 mg/dL (0.2-1.0); CALCIUM 9.3 mg/dL (8.5-10.3); CREATININE 1.2 mg/dL (0.6-1.2); POTASSIUM 4.7 mmol/L (3.5-5.0); TOTAL PROTEIN 7.4 g/dL (6.7-8.2)
[2021-05-11] MEDS ORDERED: ASPIRIN CHEW 81 MG TABLET PO STA (13:03)
[2021-05-11] MEDS ORDERED: IOVERSOL 320 100 ML VIAL IVP ONE ×2 (13:26→21:05)
--- NOTE | 2021-05-11 15:37 | CT Report ---
PROCEDURE: ANGIO CHEST W/WO INDICATIONS: eleavted BNP; r/o LV thrombus CONTRAST: IV CONTRAST: Optiray 320 ml: 80 PO CONTRAST: *NO PO CONTRAST TECHNIQUE: After the administration of intravenous contrast, images were acquired from the pulmonary apices to t he posterior costophrenic angles. 3-dimensional maximum intensity projection (MIP) coronal and sagit rhina reformats were then acquired through the thorax. For radiation dose reduction, the following was used: automated exposure control, adjustment of mA and/or kV according to patient size. COMPARISON: CT chest angiogram, 08/11/2014. FINDINGS: Image quality: Excellent. Pulmonary arteries: Pulmonary arteries are normal in size. Pulmonary arteries are suboptimally opaci fied. Cannot rule out pulmonary embolism. Lungs and pleura: There is a 0.9 cm nodule in the inferior aspect of the right middle lobe (series 20 image 76). A calcified granuloma is noted in the left upper lobe. Mild infiltrate in the lingula. N o pleural effusions or pneumothorax. Central and peripheral airways are patent. Mediastinum: Heart is [id number] enlarged. No pericardial effusion. There is severe coron [place] artery calcification. Moderately enlarged mediastinal lymph nodes are present. For example, there is a 1.5 cm pretracheal lymph node. A 1.2 cm AP window lymph node is identified. A 1.1 cm subcarinal lymph is visualized. Calcified lymph nodes are seen in the right hilum. Thoracic aorta is normal in caliber and enhancement. Esophagus is normal in caliber, without hiatal hernia. Bones and chest wall: There are sclerotic bone lesions in T6 and T11. Ribs and thoracic spine appear intact throughout. No axillary or supraclavicular adenopathy. The thyroid is normal in size and th ere are no incidental findings. Abdomen: There is a 16 mm stone in the left UPJ. There is gallbladder wall thickening and small amou nt of pericholecystic fluid. A small amount of ascites also seen around the liver and spleen. There i s diffuse hepatic steatosis. Visualized upper abdominal solid organs otherwise are normal in the kamari y arterial phase of enhancement. IMPRESSION: 1. No thrombus is visualized within the left ventricle. 2. Moderate to severe cardiomegaly. 3. Severe coronary artery calcification. 4. Pulmonary arteries are not well opacified. Cannot rule out pulmonary embolism. 5. Mild mediastinal lymphadenopathy. This finding is nonspecific and may be secondary to infection, i nflammation or neoplasm. 6. A 0.9 cm nodule in the right middle lobe. Recommend a short-term follow-up CT in 3 months. 7. Sclerotic lesion seen in T6 and T11. If the patient has history of cancer, both could represent fo r bone metastases. A differential diagnosis is a bone islands. Recommend clinical correlation. 8. A 16 mm stone at the left UPJ. There is trace left renal pelviectasis. 9. Mild gallbladder wall thickening and a small amount of pericholecystic fluid. No radiopaque gallst ones. Recommend clinical correlation for acalculus cholecystitis. If clinically indicated, ultrasound may be helpful for further evaluation. 10. A small amount of ascites. The result was discussed with Dr. Fitzpatrick. Reviewed by: Carrington Hoang MD on 05/11/2021 3:35 PM PDT Approved by: Carrington Hoang MD on 05/11/2021 3:35 PM PDT Station ID: [id number]
[2021-05-11 15:54] VITALS: BP 120/92
== END 2021-05-11 15:59 | disposition home or self-care (01) ==
LOC: ED 11:37
DX: R06.02 Shortness of breath (principal); R60.0 Localized edema; R79.89 Other specified abnormal findings of blood chemistry; N13.2 Hydronephrosis with renal and ureteral calculous obstruction; M89.9 Disorder of bone, unspecified; R91.1 Solitary pulmonary nodule; R59.0 Localized enlarged lymph nodes; I49.3 Ventricular premature depolarization; I10 Essential (primary) hypertension; I25.2 Old myocardial infarction; I25.10 Atherosclerotic heart disease of native coronary artery without angina pectoris; Z95.5 Presence of coronary angioplasty implant and graft; K40.90 Unilateral inguinal hernia, without obstruction or gangrene, not specified as recurrent; Z79.82 Long term (current) use of aspirin; Z87.891 Personal history of nicotine dependence
CPT/HCPCS: 36415; 71045; 71275; 80053; 83690; 83880; 84484; 85025; 93005; 96374; 99284; A9270; Q9967

== ENCOUNTER 2021-05-15 08:00 | Outpatient (CLI) | payer MEDICARE ==
[2021-05-15 18:51] LABS: CALCIUM 9.5 mg/dL (8.5-10.3); CREATININE 1.3 mg/dL (0.6-1.2); POTASSIUM 5.1 mmol/L (3.5-5.0)
== END 2021-05-15 23:59 | disposition home or self-care (01) ==
LOC: LAB.WCP 08:00
PROVIDERS: ATTEND Family Medicine
DX: I25.10 Atherosclerotic heart disease of native coronary artery without angina pectoris (principal); I50.22 Chronic systolic (congestive) heart failure
CPT/HCPCS: 36415; 80048; 83880

== ENCOUNTER 2021-06-14 08:00 | Outpatient (CLI) | payer MEDICARE ==
[2021-06-14 17:50] LABS: HCT - HEMATOCRIT 52.1 % (42.0-52.0); HGB - HEMOGLOBIN 16.4 g/dL (14.0-18.0); MEAN CORPUSCULAR HGB CONC 31.5 g/dL (32.0-36.0); MEAN CORPUSCULAR VOLUME 95.4 fL (80.0-94.0); MEAN PLATELET VOLUME 10.4 fL (7.4-11.4); RED BLOOD COUNT 5.46 10^6/uL (4.70-6.10); RED CELL DISTRIBUTION WIDTH 18.9 % (12.0-15.0)
[2021-06-14 18:01] LABS: CALCIUM 9.8 mg/dL (8.5-10.3); CREATININE 1.1 mg/dL (0.6-1.2); POTASSIUM 4.6 mmol/L (3.5-5.0)
[2021-06-14 18:20] LABS: THYROID STIMULATING HORMONE 2.23 uIU/mL (0.34-5.60)
[2021-06-14 18:21] LABS: FREE T3 3.48 pg/mL (2.5-3.9)
[2021-06-14 18:22] LABS: FREE T4 (FREE THYROXINE) 0.97 ng/dL (0.58-1.64)
== END 2021-06-14 23:59 | disposition home or self-care (01) ==
LOC: LAB.WCP 08:00
PROVIDERS: ATTEND Family Medicine
DX: I42.9 Cardiomyopathy, unspecified (principal); I25.10 Atherosclerotic heart disease of native coronary artery without angina pectoris; R06.01 Orthopnea
CPT/HCPCS: 36415; 80048; 83880; 84439; 84443; 84481; 85027

== ENCOUNTER 2022-03-21 09:12 | Outpatient (CLI) | payer MEDICARE ==
[2022-03-21 09:26] LABS: BASOPHILS % (AUTO) 0.4 %; EOSINOPHILS # (AUTO) 0.2 10^3/uL (0.0-0.7); EOSINOPHILS % (AUTO) 2.5 %; HCT - HEMATOCRIT 44.2 % (42.0-52.0); LYMPHOCYTES # (AUTO) 0.9 10^3/uL (1.5-3.5); LYMPHOCYTES % (AUTO) 9.9 %; MEAN CORPUSCULAR HEMOGLOBIN 30.9 pg (27.0-31.0); MEAN CORPUSCULAR HGB CONC 31.7 g/dL (32.0-36.0); MEAN CORPUSCULAR VOLUME 97.6 fL (80.0-94.0); MEAN PLATELET VOLUME 9.5 fL (7.4-11.4); MONOCYTES # (AUTO) 1.3 10^3/uL (0.0-1.0); MONOCYTES % (AUTO) 13.4 %; NEUTROPHILS # (AUTO) 6.9 10^3/uL (1.5-6.6); NEUTROPHILS % (AUTO) 73.2 %; PLT - PLATELET COUNT 168 10^3/uL (130-450); RED BLOOD COUNT 4.53 10^6/uL (4.70-6.10); RED CELL DISTRIBUTION WIDTH 14.6 % (12.0-15.0); WHITE BLOOD COUNT 9.5 x10^3/uL (4.8-10.8)
[2022-03-21 09:45] LABS: ALBUMIN 3.7 g/dL (3.2-5.5); ALBUMIN/GLOBULIN RATIO 0.8 (1.0-2.2); ALKALINE PHOSPHATASE 86 IU/L (42-121); ALT ALANINE AMINOTRANSFERASE 30 IU/L (10-60); AST ASPARTATE AMINOTRANSFERASE 27 IU/L (10-42); BUN - BLOOD UREA NITROGEN 29 mg/dL (6-20); CALCIUM 9.5 mg/dL (8.5-10.3); CARBON DIOXIDE - CO2 28 mmol/L (21-32); CHLORIDE 101 mmol/L (101-111); CHOL/HDL RATIO 3.8 (<5.0); CHOLESTEROL 135 mg/dL; CREATININE 1.2 mg/dL (0.6-1.2); GFR - MDRD 60 (>89); GLUCOSE 164 mg/dL (70-100); HDL CHOLESTEROL 36 mg/dL; LDL CHOLESTEROL,CALCULATED 78 mg/dL; LDL/HDL RATIO 2.2 (<3.6); POTASSIUM 4.8 mmol/L (3.5-5.0); SODIUM 139 mmol/L (135-145); TOTAL PROTEIN 8.1 g/dL (6.7-8.2); TRIGLYCERIDES 107 mg/dL; VLDL CHOLESTEROL 21 mg/dL
[2022-03-21 09:57] LABS: THYROID STIMULATING HORMONE 1.91 uIU/mL (0.34-5.60)
== END 2022-03-21 09:13 | disposition home or self-care (01) ==
LOC: LAB 09:12
PROVIDERS: ATTEND Family Medicine
DX: I42.9 Cardiomyopathy, unspecified (principal); I50.22 Chronic systolic (congestive) heart failure
CPT/HCPCS: 36415; 80053; 80061; 83721; 83880; 84443; 85025

== ENCOUNTER 2022-06-22 08:36 | Outpatient (CLI) | payer MEDICARE ==
[2022-06-22 08:58] LABS: BASOPHILS % (AUTO) 0.5 %; EOSINOPHILS # (AUTO) 0.2 10^3/uL (0.0-0.7); EOSINOPHILS % (AUTO) 2.3 %; HCT - HEMATOCRIT 43.6 % (42.0-52.0); HGB - HEMOGLOBIN 13.7 g/dL (14.0-18.0); LYMPHOCYTES # (AUTO) 0.9 10^3/uL (1.5-3.5); LYMPHOCYTES % (AUTO) 10.3 %; MEAN CORPUSCULAR HEMOGLOBIN 29.1 pg (27.0-31.0); MEAN CORPUSCULAR HGB CONC 31.4 g/dL (32.0-36.0); MEAN CORPUSCULAR VOLUME 92.6 fL (80.0-94.0); MEAN PLATELET VOLUME 9.1 fL (7.4-11.4); MONOCYTES # (AUTO) 1.2 10^3/uL (0.0-1.0); MONOCYTES % (AUTO) 13.8 %; NEUTROPHILS # (AUTO) 6.3 10^3/uL (1.5-6.6); NEUTROPHILS % (AUTO) 72.8 %; PLT - PLATELET COUNT 173 10^3/uL (130-450); RED BLOOD COUNT 4.71 10^6/uL (4.70-6.10); RED CELL DISTRIBUTION WIDTH 16.9 % (12.0-15.0); WHITE BLOOD COUNT 8.7 x10^3/uL (4.8-10.8)
[2022-06-22 09:07] LABS: ALBUMIN 3.9 g/dL (3.2-5.5); ALBUMIN/GLOBULIN RATIO 0.9 (1.0-2.2); ALKALINE PHOSPHATASE 109 IU/L (42-121); ALT ALANINE AMINOTRANSFERASE 32 IU/L (10-60); AST ASPARTATE AMINOTRANSFERASE 34 IU/L (10-42); BILIRUBIN,TOTAL 0.9 mg/dL (0.2-1.0); BUN - BLOOD UREA NITROGEN 28 mg/dL (6-20); CALCIUM 9.6 mg/dL (8.5-10.3); CARBON DIOXIDE - CO2 24 mmol/L (21-32); CHLORIDE 102 mmol/L (101-111); CHOL/HDL RATIO 3.6 (<5.0); CHOLESTEROL 121 mg/dL; GFR - MDRD 74 (>89); GLUCOSE 150 mg/dL (70-100); HDL CHOLESTEROL 34 mg/dL; LDL CHOLESTEROL,CALCULATED 71 mg/dL; LDL/HDL RATIO 2.1 (<3.6); POTASSIUM 4.4 mmol/L (3.5-5.0); SODIUM 137 mmol/L (135-145); TOTAL PROTEIN 8.3 g/dL (6.7-8.2); TRIGLYCERIDES 78 mg/dL; VLDL CHOLESTEROL 16 mg/dL
[2022-06-22 09:20] LABS: THYROID STIMULATING HORMONE 1.36 uIU/mL (0.34-5.60)
== END 2022-06-22 08:37 | disposition home or self-care (01) ==
LOC: LAB 08:36
PROVIDERS: ATTEND Family Medicine
DX: I25.5 Ischemic cardiomyopathy (principal); I95.9 Hypotension, unspecified
CPT/HCPCS: 36415; 80053; 80061; 83721; 84153; 84443; 85025

== ENCOUNTER 2022-08-09 18:20 | Outpatient (CLI) | payer MEDICARE | END 2022-08-09 23:59 | disposition E | LOC: EMS 18:20 | DX: I46.9 Cardiac arrest, cause unspecified (principal) | CPT/HCPCS: A0425; A0428 ==